=== PATIENT | male | born 1955 | race Native Hawaiian/Other Pacific Islander ===

== ENCOUNTER → 2017-12-18 | Outpatient (CLI) | payer OTHER ==
--- NOTE | 2017-12-18 12:50 | MR ---
EXAMINATION TYPE: MR brain/lspine wo con DATE OF EXAM: 12/18/2017 COMPARISON: NONE HISTORY: Vertigo / Disc degeneration, lumbar spine per order. Degeneration of lumbar spine with arth ritis causing pain into left buttocks thigh and calf per patient. Dizziness per patient. TECHNIQUE: Multiplanar, multisequence imaging of the lumbar spine, brain, and brainstem are all perfo rmed performed without IV contrast. FINDINGS: BRAIN: Diffusion weighted images demonstrate no evidence of a recent infarct or other diffusion abnormality. There is no worrisome extra-axial fluid collection. There is mild ventricular and sulcal prominence c onsistent with mild diffuse age-related cerebral atrophy. There are multifocal areas of T2 hyperinten sity seen throughout the white matter bilaterally. Approximately 10 scattered lesions are seen. Lesio ns are likely on basis of product of chronic small vessel ischemic change. Midline structures demonstrate normal morphology. The craniocervical junction appears within normal limits. Normal vascular flow voids are present. There is 2 cm mucous retention cyst or polyp in the i nferior posterior left maxillary sinus. There is moderate to severe mucosal thickening in ethmoid sin uses bilaterally. There is mild mucosal thickening in bilateral frontal and sphenoid sinuses. Nasal s eptum is deviated to right of midline. The globes are intact bilaterally. Some patchy increased fluid signal right mastoid air cells is present. IMPRESSION: 1. There is mild diffuse age-related cerebral atrophy and chronic small vessel ischemic change identi fied. 2. Chronic paranasal sinus disease as detailed above. 3. Possible mild right-sided mastoiditis, clinical correlation to assess for point tenderness at this level advised. Differential includes retained secretions. L-SPINE: TECHNIQUE: Multiplanar, multisequence imaging of the lumbar spine is performed without IV contrast. FINDINGS: Sagittal images of the lumbar spine show vertebral body heights and alignment to appear sat isfactory. Multilevel disc desiccation is seen. There is multilevel mild to moderate disc space narro wing most prominent posterior L3-L4 through L5-S1 levels posterior spur disc complexes are seen at th ronny levels on sagittal images. The conus medullaris is normal in position and signal ending at L1-L2 disc space. There is prominence of epidural fat beginning at superior L3 level noted. The bone marro w signal intensity is within normal limits. There is mild to moderate multilevel anterior spurring. Axial images show the T12-L1 and L1-L2 levels to appear within normal limits. Axial images at L2-L3 level show broad-based posterior disc protrusion effacing anterior thecal sac a nd causing mild bilateral anterior inferior neural foraminal narrowing. Prominence of epidural fat be gins at this level posteriorly and laterally. Axial images at L3-L4 level show mild to moderate facet degenerative changes bilaterally. There is br oad-based posterior disc protrusion seen. Prominence of epidural fat is noted. There is mild to moder ate bilateral right greater than left neural foraminal narrowing at this level identified. Axial images at L4-L5 level show mild to moderate facet degenerative changes bilaterally. There is br oad-based posterior disc protrusion seen. There is moderate bilateral neural foraminal narrowing at t his level identified. Prominent epidural fat is once again noted. Axial images at L5-S1 level show moderate facet degenerative changes bilaterally. Prominent epidural fat is noted. There is posterior spur disc complex identified. There is moderate right and severe lef t-sided neural foraminal narrowing with suspected encroachment on left L5 nerve seen best sagittal im age 2 and axial image 4. Paraspinal muscle bulk is preserved. No suspicious retroperitoneal findings are seen. IMPRESSION: There is epidural lipomatosis mid to lower lumbar spine causing diffuse narrowing of spin al canal. Multilevel degenerative changes are seen most prominent L3-L4 through L5-S1 levels as detai led above. There is encroachment on left L5 nerve due to disc herniation L5-S1 level felt present.
== END | disposition home or self-care (01) ==
LOC: RADMRIMAIN 10:57
PROVIDERS: ATTEND Psychiatry & Neurology Neurology
DX: G31.9 Degenerative disease of nervous system, unspecified (principal); I67.82 Cerebral ischemia; M51.27 Other intervertebral disc displacement, lumbosacral region; E88.2 Lipomatosis, not elsewhere classified; M48.061 Spinal stenosis, lumbar region without neurogenic claudication; M47.817 Spondylosis without myelopathy or radiculopathy, lumbosacral region; Z95.1 Presence of aortocoronary bypass graft
CPT/HCPCS: 70551; 72148

== ENCOUNTER 2020-04-21 12:20 | Observation (INO) | payer OTHER ==
[2020-04-21] MEDS ORDERED: SODIUM CHLORIDE 0.9% 1,000 ML IV ONE (13:10)
[2020-04-21 13:50] LABS: Glucose,Whole Blood 108 mg/dL (75-99)
[2020-04-21] MEDS ORDERED: LIDOCAINE 1% INJ 10MG/ML (20 ML MDV) ONE (17:30)
[2020-04-21] MEDS ORDERED: MIDAZOLAM 2 MG/2 ML VIAL IV ONE (17:45)
[2020-04-21] MEDS ORDERED: BIVALIRUDIN 250 MG in SODIUM CHLORIDE 0.9% 35 ML IV ONE (17:46)
[2020-04-21] MEDS ORDERED: BIVALIRUDIN BOLUS 250 MG/50 ML IV ONE (17:46)
[2020-04-21] MEDS ORDERED: PRASUGREL 10 MG TAB ONE (17:49)
[2020-04-21] MEDS ORDERED: PRASUGREL 10 MG TAB PO ONE (17:51)
[2020-04-21] MEDS: NITROGLYCERIN 1000MCG/10ML SYRINGE INTRACORON ONE ×2 (17:52→17:56)
[2020-04-21] MEDS ORDERED: niCARdipine 25 MG/10 ML VIAL ONE (18:01)
[2020-04-21] MEDS ORDERED: niCARdipine Syringe (1,000 mcg/10 mL) INTRACORON ONE (18:02)
[2020-04-21] MEDS ORDERED: IOPAMIDOL-370 125ML BTL INJ ONE (18:04)
[2020-04-21] MEDS ORDERED: HYDROcodone/APAP 5-325MG 1 EACH TAB PO PRN (18:09)
[2020-04-21] MEDS ORDERED: MAG HYDROX/AL HYDROX/SIMETH 30 ML CUP PO PRN (18:10)
[2020-04-21] MEDS ORDERED: ZOLPIDEM 5 MG TAB PO PRN (18:10)
[2020-04-21] MEDS ORDERED: NITROGLYCERIN SL TABS 0.4 MG TAB SUBLINGUAL PRN (18:10)
[2020-04-21] MEDS ORDERED: ATROPINE SULFATE 0.1 MG/ML 10ML SYRINGE IV PRN (18:10)
[2020-04-21] MEDS ORDERED: RX INFO: IV CONTRAST WAS GIVEN 1 EACH MISC MISCELLANE PRN (18:10)
[2020-04-21] MEDS ORDERED: SODIUM CHLORIDE 0.9% 1,000 ML IV SCH (18:15)
--- NOTE | 2020-04-21 18:50 | PTCA ---
PERCUTANEOUSTRANS CORORONARY ANGIOGRAPHY DATE OF SERVICE: 04/21/2020 PERFORMING PHYSICIAN: Tejinder Melendez M.D. PROCEDURE PERFORMED: Successful stenting of the proximal left anterior descending artery using a 3.25 x 15 mm Xience drug-eluting stent which was post-dilated using a 3.5 mm NC balloon with an excellent angiographic result and reduction of stenosis from 80% to 0%. INDICATION: This is a pleasant 65-year-old gentleman with known coronary artery disease and prior coronary artery bypass grafting who was admitted to [facility] with chest discomfort and was found to have an abnormal myocardial perfusion imaging stress test. A heart catheterization was performed and revealed critical disease involving the LAD. He was brought today for PCI of the LAD. APPROACH: Right common femoral artery. COMPLICATIONS: None. LEVEL OF SEDATION: Moderate, with sedation length of 23 minutes. PROCEDURE DESCRIPTION: Please refer to diagnostic heart catheterization that was performed by myself earlier today at [facility]. Anticoagulation was initiated using Angiomax. Subsequently I did engage the left main using a JL4 guide. I did wire the LAD using a run-through wire. I did PTCA ballooning using a 3.0 x 12 mm balloon before I deployed a a 3.5 x 15 mm Xience drug-eluting stent where the stent was positioned under fluoroscopic guidance and deployed under 14 atmospheres for 20 seconds. I post-dilated the stent using a 3.5 mm NC balloon. The following angiogram showed excellent angiographic results, and the procedure was completed without any complication. POST-PROCEDURE MANAGEMENT: 1. Dual anti-platelet therapy. 2. Risk factor modifications. 3. Follow up with the patient. MMODL / IJN: [id number] /
[2020-04-21] MEDS: BUDESONIDE 0.5 MG/2 ML NEBU INHALATION SCH (19:00)
[2020-04-21] MEDS ORDERED: IPRATROPIUM-ALBUTEROL 3 ML NEB INHALATION PRN (20:06)
[2020-04-21] MEDS ORDERED: ATORVASTATIN 40 MG TAB PO SCH (21:00)
[2020-04-21 21:45] VITALS: RESP 18
[2020-04-21] MEDS: METOPROLOL TARTRATE 50 MG TAB PO SCH (21:51)
[2020-04-22 06:11] LABS: Glucose,Whole Blood 116 mg/dL (75-99)
[2020-04-22 06:54] LABS: Basophils # (A) 0.1 k/uL (0-0.2); Basophils % (A) 0 %; Eosinophils # (A) 0.4 k/uL (0-0.7); Eosinophils % (A) 3 %; HCT 47.6 % (39.0-53.0); HGB 15.3 gm/dL (13.0-17.5); Lymphocytes # (A) 2.5 k/uL (1.0-4.8); Lymphocytes % (A) 19 %; MCH 30.9 pg (25.0-35.0); MCHC 32.1 g/dL (31.0-37.0); MCV 96.2 fL (80.0-100.0); Mean Platelet Volume 7.3; Monocytes # (A) 0.6 k/uL (0-1.0); Monocytes % (A) 4 %; Neutrophils # (A) 9.6 k/uL (1.3-7.7); Neutrophils % (A) 73 %; Platelet Count 217 k/uL (150-450); RBC 4.94 m/uL (4.30-5.90); RDW 12.9 % (11.5-15.5); WBC 13.3 k/uL (3.8-10.6)
[2020-04-22 07:13] LABS: African American GFR (CKD) >90 (>60 ml/min/1.73 sqM); Anion Gap 6 mmol/L; Blood Urea Nitrogen 16 mg/dL (9-20); Calcium 8.8 mg/dL (8.4-10.2); Carbon Dioxide 28 mmol/L (22-30); Chloride 102 mmol/L (98-107); Glucose 107 mg/dL (74-99); Non-African American GFR(CKD) >90 (>60 ml/min/1.73 sqM); Potassium 4.5 mmol/L (3.5-5.1); Sodium 136 mmol/L (137-145)
[2020-04-22] MEDS ORDERED: INSULIN ASPART (NovoLOG) 100 UNIT/ML VIAL SQ SCH (07:30)
[2020-04-22] MEDS ORDERED: IPRATROPIUM-ALBUTEROL 3 ML NEB INHALATION SCH ×2 (08:00)
[2020-04-22] MEDS: BUDESONIDE 0.5 MG/2 ML NEBU INHALATION SCH (08:40)
[2020-04-22 08:48] VITALS: BP 134/79; TEMP 97.4
[2020-04-22 08:54] VITALS: PULSE 84
[2020-04-22] MEDS ORDERED: ASPIRIN 325 MG TAB PO SCH (09:00)
[2020-04-22] MEDS ORDERED: PANTOPRAZOLE 40 MG TABLET PO SCH (09:00)
[2020-04-22] MEDS: METOPROLOL TARTRATE 50 MG TAB PO SCH (09:08)
--- NOTE | 2020-04-22 09:46 | DS ---
DISCHARGE SUMMARY BRIEF HISTORY: This is a 65-year-old gentleman with coronary artery disease and prior coronary artery bypass grafting, who has not seen a physician in 3 years, [facility] and underwent myocardial perfusion imaging stress test and that revealed ischemia. He underwent subsequently a heart catheterization which revealed critical disease involving the LAD. He underwent yesterday successful stenting of the LAD using drug-eluting stent with an excellent angiographic results and without any complication. He was seen this morning. The right groin is soft and nontender and without any bruises. The patient is going to discharged home and I will follow up with him in the office next week. MMODL / IJN: [id number] /
[2020-04-22 10:30] VITALS: BMI 39.6
--- NOTE | 2020-04-22 18:04 | HP ---
HISTORY AND PHYSICAL CHIEF COMPLAINT: Chest pain. HISTORY OF PRESENT ILLNESS: This gentleman was transferred from [facility]. He was admitted there with chest pain and underwent a Lexiscan which was abnormal and subsequent cardiac cath which demonstrated a narrowed vessel, and he was moved here for stenting. REVIEW OF SYSTEMS: He is not having any pain at this time. He has had no headaches, nausea, vomiting, abdominal pain, fever, chills, etc. Past medical history, family history, and personal and social histories can all be found in the records from [facility]'s notes. PHYSICAL EXAMINATION: Blood pressure 129/74 with a pulse of 88, respirations of 29. He is afebrile. In general he appeared to be slightly overweight and in no acute distress. Skin color was normal. Skin was warm and dry. Lymph nodes were not enlarged. Head, ears, eyes, nose, mouth and throat were normal. Neck veins were not distended. Thyroid was not enlarged. Chest was clear. Cardiac exam was normal. Abdomen was soft and slightly protuberant. Extremities were normal. Neurologically he is intact. He is admitted to the hospital with diagnoses: 1. Coronary artery disease. 2. Status post previous coronary artery bypass grafting. 3. Type 2 [id number] diabetes mellitus. 4. Chronic obstructive pulmonary disease. PLAN: Cardiac cath with coronary artery stent. MMODL / IJN: [id number] /
[2020-04-22] MEDS ORDERED: PRASUGREL 10 MG TAB PO SCH (18:10)
--- NOTE | 2020-04-22 18:19 | PN ---
PROGRESS NOTE DATE OF SERVICE: 04/22/2020 CHIEF COMPLAINT: Coronary artery disease. HISTORY OF PRESENT ILLNESS: This gentleman is doing well. He received his stent and yesterday and expects to go home today. PHYSICAL EXAMINATION: He is afebrile. Vital signs are normal. His chest is clear. Cardiac exam is normal. Abdomen is soft, nontender. IMPRESSION: 1. Coronary artery disease. 2. Hypertension. 3. Chronic obstructive pulmonary disease. 4. Diabetes. PLAN: Probably home today. MMODL / IJN: [id number] /
== END 2020-04-22 10:37 | disposition home or self-care (01) ==
LOC: 3SCARD 13:05 → INTOOBSV 13:05 → UNDODISIN 04-22 10:37
PROVIDERS: ADMIT Internal Medicine Interventional Cardiology; ATTEND Internal Medicine Interventional Cardiology
DX: I25.10 Atherosclerotic heart disease of native coronary artery without angina pectoris (principal); E11.9 Type 2 diabetes mellitus without complications; J44.9 Chronic obstructive pulmonary disease, unspecified; I10 Essential (primary) hypertension; Z95.1 Presence of aortocoronary bypass graft
CPT/HCPCS: 93005; 94640 ×2; 80048; 85025; G0378 ×2; G0379; C9600; C1887; C1725 ×2; C1894; C1769; C1874; J2250; J0583; Q9967

== ENCOUNTER → 2020-07-07 | Outpatient (CLI) | payer OTHER ==
[2020-07-07 13:50] LABS: HCT 48.7 % (39.0-53.0); MCH 31.9 pg (25.0-35.0); MCHC 32.9 g/dL (31.0-37.0); Mean Platelet Volume 7.5; Platelet Count 249 k/uL (150-450); RBC 5.02 m/uL (4.30-5.90); RDW 12.8 % (11.5-15.5); WBC 12.5 k/uL (3.8-10.6)
[2020-07-07 13:53] LABS: Magnesium 2.1 mg/dL (1.6-2.3); Potassium 5.3 mmol/L (3.5-5.1)
== END | disposition home or self-care (01) ==
LOC: LABPAT 11:58
PROVIDERS: ATTEND Internal Medicine Interventional Cardiology
DX: Z01.818 Encounter for other preprocedural examination (principal); I25.10 Atherosclerotic heart disease of native coronary artery without angina pectoris
CPT/HCPCS: 36415; 80051; 82565; 83735; 85027

== ENCOUNTER 2020-07-13 06:34 | Day surgery (SDC) | payer OTHER ==
[2020-07-08 11:36] VITALS: BMI 40.2
[2020-07-13] MEDS ORDERED: ASPIRIN 325 MG TAB PO STA (06:47)
[2020-07-13] MEDS ORDERED: SODIUM CHLORIDE 0.9% 1,000 ML in EMPTY BAG 1 BAG IV ONE (06:47)
[2020-07-13] MEDS ORDERED: ALPRAZolam 0.25 MG TAB PO PRN (06:47)
[2020-07-13] MEDS ORDERED: ALPRAZolam 0.5 MG TAB PO PRN (06:47)
[2020-07-13] MEDS ORDERED: NITROGLYCERIN SL TABS 0.4 MG TAB SUBLINGUAL PRN (06:47)
[2020-07-13 07:09] LABS: Glucose,Whole Blood 123 mg/dL (75-99)
[2020-07-13 07:16] VITALS: RESP 18; TEMP 99
[2020-07-13] MEDS ORDERED: LIDOCAINE 1% INJ 10MG/ML (20 ML MDV) ONE (07:28)
[2020-07-13 07:44] LABS: Basophils # (A) 0.1 k/uL (0-0.2); Basophils % (A) 1 %; Eosinophils # (A) 0.5 k/uL (0-0.7); Eosinophils % (A) 4 %; HCT 44.8 % (39.0-53.0); HGB 14.7 gm/dL (13.0-17.5); Lymphocytes # (A) 2.4 k/uL (1.0-4.8); Lymphocytes % (A) 16 %; MCHC 32.9 g/dL (31.0-37.0); MCV 94.3 fL (80.0-100.0); Mean Platelet Volume 7.2; Monocytes # (A) 0.7 k/uL (0-1.0); Monocytes % (A) 5 %; Neutrophils # (A) 10.7 k/uL (1.3-7.7); Neutrophils % (A) 74 %; Platelet Count 230 k/uL (150-450); RBC 4.75 m/uL (4.30-5.90); RDW 12.6 % (11.5-15.5); WBC 14.5 k/uL (3.8-10.6)
[2020-07-13] MEDS ORDERED: MIDAZOLAM 2 MG/2 ML VIAL IV ONE (08:01)
[2020-07-13] MEDS ORDERED: LIDOCAINE 1% INJ 10MG/ML (20 ML MDV) SQ ONE (08:01)
[2020-07-13 08:04] LABS: African American GFR (CKD) >90 (>60 ml/min/1.73 sqM); Anion Gap 6 mmol/L; Blood Urea Nitrogen 17 mg/dL (9-20); Calcium 8.8 mg/dL (8.4-10.2); Carbon Dioxide 27 mmol/L (22-30); Chloride 102 mmol/L (98-107); Glucose 134 mg/dL (74-99); Non-African American GFR(CKD) 81 (>60 ml/min/1.73 sqM); Potassium 4.2 mmol/L (3.5-5.1); Sodium 135 mmol/L (137-145)
[2020-07-13] MEDS ORDERED: IOPAMIDOL-370 125ML BTL INJ ONE (08:21)
[2020-07-13] MEDS ORDERED: RX INFO: IV CONTRAST WAS GIVEN 1 EACH MISC MISCELLANE PRN (08:33)
[2020-07-13] MEDS ORDERED: SODIUM CHLORIDE 0.9% 1,000 ML IV SCH (08:45)
--- NOTE | 2020-07-13 09:41 | CC ---
CARDIAC CATHETERIZATION REPORT DATE OF SERVICE: 07/13/2020 PERFORMING PHYSICIAN: Tejinder Melendez MD. PROCEDURE PERFORMED: 1. Selective left and right coronary angiogram. 2. Left heart catheterization. INDICATION: This is a 65-year-old gentleman with coronary artery disease and prior coronary artery bypass grafting as well as stenting who continues to have chest discomfort and shortness of breath with exertion concerning for severe underlying coronary artery disease. Because of that, a heart catheterization was advised. APPROACH: Right common femoral artery. COMPLICATION: None. LEVEL OF SEDATION: Moderate with sedation length of 23 minutes. PROCEDURE DESCRIPTION: After obtaining an informed consent, the patient was brought to the cardiac roving tester laboratory. The right common femoral artery was cannulated using micropuncture technique. Then I placed a 6-Gabonese sheath. Selective left and right coronary angiogram performed using JL4 and JR4 catheters. SVG to left circumflex angiogram and SVG to diagonal angiogram performed using the JR4 catheter. The left heart catheterization was performed using 6-Gabonese pigtail catheter. The procedure was completed without any complication. SELECTIVE CORONARY ANGIOGRAM: 1. The right coronary artery is a medium caliber vessel. The RCA in the midportion is probably chronically occluded. This is just by the bifurcation of the acute marginal branch. 2. The left main is angiographically normal, it bifurcates into LCX and LAD. 3. The LCX is occluded in the proximal portion. 4. The LAD, the LAD is stented in the proximal portion, but the mid LAD has significant myocardial bridging. The LAD distally appeared to be angiographically normal. 5. HEMODYNAMICS: The LVEDP was 10 mmHg without significant gradient across the aortic valve. CORONARY BYPASSES ANGIOGRAM: 1. The SVG to OM is patent. 2. The SVG to diagonal is occluded. CONCLUSION: 1. Patent stent in the proximal LAD. Significant myocardial bridging involving the mid LAD. 2. Occluded left circumflex in the proximal portion. The SVG to the circumflex is patent. 3. Subtotally occluded mid right coronary artery. The SVG to RCA is occluded. 4. Occluded SVG to diagonal as well. POSTPROCEDURE MANAGEMENT: 1. Consider medical treatment at this point. 2. If the patient continues to be symptomatic, I would consider doing PCI of the mid RCA by the acute marginal bifurcation. MMODL / IJN: [id number] /
[2020-07-13 16:20] VITALS: BP 117/58
[2020-07-13 16:21] VITALS: PULSE 72
== END 2020-07-13 16:22 | disposition home or self-care (01) ==
LOC: CATHCVL 06:34
PROVIDERS: ATTEND Internal Medicine Interventional Cardiology
DX: I25.10 Atherosclerotic heart disease of native coronary artery without angina pectoris (principal); I25.810 Atherosclerosis of coronary artery bypass graft(s) without angina pectoris; I25.82 Chronic total occlusion of coronary artery; I10 Essential (primary) hypertension; E11.9 Type 2 diabetes mellitus without complications; E66.3 Overweight; E78.5 Hyperlipidemia, unspecified; Z79.84 Long term (current) use of oral hypoglycemic drugs; Z79.82 Long term (current) use of aspirin; Z79.899 Other long term (current) drug therapy; Z88.0 Allergy status to penicillin; Z68.41 Body mass index [BMI] 40.0-44.9, adult; Z95.1 Presence of aortocoronary bypass graft; Z95.5 Presence of coronary angioplasty implant and graft
CPT/HCPCS: 93459; 80048; 85025; C1894; C1769 ×2; J2250; J2001; Q9967

== ENCOUNTER 2020-08-03 06:30 | Day surgery (SDC) | payer OTHER ==
[~2020-08-03 06:30] MED LIST: ALPRAZolam 0.25 MG TAB PO PRN; ALPRAZolam 0.5 MG TAB PO PRN; ASPIRIN 325 MG TAB PO STA; NITROGLYCERIN SL TABS 0.4 MG TAB SUBLINGUAL PRN; SODIUM CHLORIDE 0.9% 1,000 ML in EMPTY BAG 1 BAG IV ONE
[2020-08-03] MEDS ORDERED: SODIUM CHLORIDE 0.9% 1,000 ML IV ONE (07:00)
[2020-08-03 07:09] LABS: Glucose,Whole Blood 139 mg/dL (75-99)
[2020-08-03 07:27] LABS: Basophils # (A) 0.1 k/uL (0-0.2); Basophils % (A) 1 %; Eosinophils # (A) 0.5 k/uL (0-0.7); Eosinophils % (A) 4 %; HCT 45.4 % (39.0-53.0); HGB 15.4 gm/dL (13.0-17.5); Lymphocytes # (A) 2.5 k/uL (1.0-4.8); Lymphocytes % (A) 21 %; MCH 31.6 pg (25.0-35.0); MCHC 33.8 g/dL (31.0-37.0); MCV 93.6 fL (80.0-100.0); Mean Platelet Volume 7.2; Monocytes # (A) 0.6 k/uL (0-1.0); Monocytes % (A) 5 %; Neutrophils # (A) 7.9 k/uL (1.3-7.7); Neutrophils % (A) 67 %; Platelet Count 237 k/uL (150-450); RBC 4.86 m/uL (4.30-5.90); RDW 12.7 % (11.5-15.5); WBC 11.7 k/uL (3.8-10.6)
[2020-08-03] MEDS ORDERED: MIDAZOLAM 2 MG/2 ML VIAL IV ONE ×2 (07:44→08:21)
[2020-08-03] MEDS ORDERED: LIDOCAINE 1% INJ 10MG/ML (20 ML MDV) SQ ONE (07:48)
[2020-08-03] MEDS ORDERED: HEPARIN SODIUM 1,000 UN/ML (10ML VL) IV ONE (07:54)
[2020-08-03] MEDS: NITROGLYCERIN 1000MCG/10ML SYRINGE INTRACORON ONE ×2 (08:08→08:35)
[2020-08-03] MEDS: niCARdipine Syringe (1,000 mcg/10 mL) INTRACORON ONE ×2 (08:09→08:35)
[2020-08-03 08:14] LABS: African American GFR (CKD) >90 (>60 ml/min/1.73 sqM); Anion Gap 5 mmol/L; Blood Urea Nitrogen 16 mg/dL (9-20); Calcium 8.3 mg/dL (8.4-10.2); Carbon Dioxide 29 mmol/L (22-30); Chloride 103 mmol/L (98-107); Cholesterol 138 mg/dL (<200); Glucose 134 mg/dL (74-99); HDL Cholesterol 34 mg/dL (40-60); LDL Cholesterol,Calculated 78 mg/dL (0-99); Non-African American GFR(CKD) >90 (>60 ml/min/1.73 sqM); Potassium 3.9 mmol/L (3.5-5.1); Sodium 137 mmol/L (137-145); Triglycerides 131 mg/dL (<150)
[2020-08-03] MEDS ORDERED: fentaNYL (PF) 50 MCG/ML 2 ML AMP IV ONE (08:21)
[2020-08-03] MEDS ORDERED: NITROGLYCERIN SL TABS 0.4 MG TAB SUBLINGUAL PRN ×2 (08:49→08:50)
[2020-08-03] MEDS ORDERED: hydrOXYzine HCL 25 MG TAB PO PRN (08:49)
[2020-08-03] MEDS ORDERED: MECLIZINE 25 MG TAB PO PRN (08:49)
[2020-08-03] MEDS ORDERED: ALBUTEROL NEBULIZED 2.5 MG/3 ML INHALATION PRN (08:49)
[2020-08-03] MEDS ORDERED: TRIAMCINOLONE 0.1% CREAM 80 GM TUBE TOPICAL PRN (08:49)
[2020-08-03] MEDS ORDERED: IOPAMIDOL-370 125ML BTL INJ ONE (08:49)
[2020-08-03] MEDS ORDERED: ATROPINE SULFATE 0.1 MG/ML 10ML SYRINGE IV PRN (08:50)
[2020-08-03] MEDS ORDERED: RX INFO: IV CONTRAST WAS GIVEN 1 EACH MISC MISCELLANE PRN (08:50)
[2020-08-03] MEDS ORDERED: ZOLPIDEM 5 MG TAB PO PRN (08:50)
[2020-08-03] MEDS ORDERED: MAG HYDROX/AL HYDROX/SIMETH 30 ML CUP PO PRN (08:50)
[2020-08-03] MEDS ORDERED: PRASUGREL 10 MG TAB PO ONE (08:51)
[2020-08-03] MEDS ORDERED: SODIUM CHLORIDE 0.9% 1,000 ML IV SCH (09:00)
[2020-08-03 09:20] LABS: Glucose,Whole Blood 130 mg/dL (75-99)
--- NOTE | 2020-08-03 09:32 | PTCA ---
PERCUTANEOUSTRANS CORORONARY ANGIOGRAPHY DATE OF SERVICE: August 03, 2020 PERFORMING PHYSICIAN: Tejinder Melendez MD. PROCEDURE PERFORMED: 1. Successful stenting of the mid right coronary artery using 2.0 x 2 mm Phillip drug- eluting stent with an excellent angiographic result. 2. Placement of transvenous temporary pacemaker in the right ventricle. INDICATION: This is a 65-year-old gentleman with coronary artery disease and prior coronary artery bypass grafting as well as stenting who is known to have severe disease/critical disease involving the mid RCA. He continues to have chest discomfort after he was treated medically. Because of that, he was brought today to undergo an intervention. APPROACH: Right common femoral artery. COMPLICATION: None. LEVEL OF SEDATION: Moderate with sedation length of 53 minutes. PROCEDURE DESCRIPTION: After obtaining an informed consent, the patient was brought to cardiac labor conciliator. The right common femoral vein and right common femoral arteries were cannulated using micropuncture technique and a micropuncture wire passed easily. Then I placed two 6- Nepalese at the vein as well as the arteries. At that point, the initial plan was to perform atherectomy of the right coronary artery, so we advanced transvenous temporary pacemaker under fluoroscopic guidance to the right ventricle where a set up of the pacemaker was placed at 60 of the heart rate and 5 of amp as a backup. The RCA was engaged using JR4 guide. At that point, anticoagulation was initiated using heparin. Selective right coronary angiogram was performed and that revealed a vessel of only 2.0 to 2.25 mm in diameter and because of that, we were hesitant to do atherectomy on the patient. At that point, I did wire the RCA using a whisper wire. I did exchange my wire into [employer] using catheter. After that I did balloon angioplasty using 1 mm balloon and subsequently 2.0 mm balloon. After that, I deployed 2.0 x 12 mm Phillip drug-eluting stent where the stent was positioned under fluoroscopy guidance and deployed under 18 atmospheres for 20 seconds and the following angiogram showed good angiographic results and the procedure was completed without any complication. Please note that the JR4 catheter crossed the aortic valve at the beginning of the procedure and I did LVEDP. The procedure was completed without any complication. POSTPROCEDURE MANAGEMENT: 1. Dual anti-platelet therapy. 2. Risk factor modifications. 3. Follow up with the patient. MMODL / IJN: [id number] /
[2020-08-03 15:36] VITALS: BMI 40.6
[2020-08-03] MEDS: FUROSEMIDE 40 MG TAB PO SCH (16:29)
[2020-08-03] MEDS: LORATADINE 10 MG TAB PO SCH (16:30)
[2020-08-03] MEDS: GLIMEPIRIDE 2 MG TAB PO SCH (16:30)
[2020-08-03] MEDS: HYDROcodone/APAP 5-325MG 1 EACH TAB PO PRN ×2 (16:32→20:24)
[2020-08-03 19:37] LABS: Glucose,Whole Blood 198 mg/dL (75-99)
[2020-08-03] MEDS ORDERED: ISOSORBIDE MONONITRATE ER 30 MG TAB.ER.24H PO SCH (21:00)
[2020-08-03] MEDS ORDERED: lisinopriL 20 MG TAB PO SCH (21:00)
[2020-08-03] MEDS: SYMBICORT 160-4.5 MCG INHALER INHALATION SCH (21:47)
[2020-08-04 06:12] LABS: Glucose,Whole Blood 107 mg/dL (75-99)
[2020-08-04 08:22] LABS: Basophils % (A) 0 %; Eosinophils # (A) 0.3 k/uL (0-0.7); Eosinophils % (A) 3 %; HGB 13.6 gm/dL (13.0-17.5); Lymphocytes # (A) 1.8 k/uL (1.0-4.8); Lymphocytes % (A) 21 %; MCH 31.7 pg (25.0-35.0); MCHC 33.2 g/dL (31.0-37.0); MCV 95.4 fL (80.0-100.0); Mean Platelet Volume 7.1; Monocytes # (A) 0.5 k/uL (0-1.0); Monocytes % (A) 6 %; Neutrophils # (A) 6.1 k/uL (1.3-7.7); Neutrophils % (A) 69 %; Platelet Count 199 k/uL (150-450); RDW 12.9 % (11.5-15.5); WBC 8.8 k/uL (3.8-10.6)
[2020-08-04 08:38] LABS: Calcium 8.3 mg/dL (8.4-10.2)
[2020-08-04] MEDS ORDERED: ERGOCALCIFEROL 50,000 UNIT CAP PO SCH (09:00)
[2020-08-04] MEDS ORDERED: ATORVASTATIN 40 MG TAB PO SCH (09:00)
[2020-08-04] MEDS ORDERED: CHOLECALCIFEROL 1,000 UNIT TAB PO SCH (09:00)
[2020-08-04] MEDS ORDERED: ASPIRIN 81 MG PO SCH (09:00)
[2020-08-04] MEDS ORDERED: METOPROLOL SUCCINATE (ER) 100 MG TAB.ER.24H PO SCH (09:00)
[2020-08-04] MEDS ORDERED: FAMOTIDINE 20 MG TAB PO SCH (09:00)
[2020-08-04] MEDS ORDERED: PANTOPRAZOLE 40 MG TABLET PO SCH (09:00)
[2020-08-04] MEDS: HYDROcodone/APAP 5-325MG 1 EACH TAB PO PRN (09:06)
[2020-08-04] MEDS: GLIMEPIRIDE 2 MG TAB PO SCH (09:07)
[2020-08-04] MEDS: FUROSEMIDE 40 MG TAB PO SCH (09:08)
[2020-08-04] MEDS: LORATADINE 10 MG TAB PO SCH (09:08)
--- NOTE | 2020-08-04 11:19 | DS ---
DISCHARGE SUMMARY ADMISSION DATE: 08/03/2020. DISCHARGE DATE: 08/04/2020 BRIEF HISTORY: This is a 65-year-old gentleman who underwent yesterday successful stenting of the right coronary artery. He was seen this morning. The right groin is soft and nontender and without any bruises. He is going to be discharged home on dual anti-platelet therapy along with a statin and holding the metformin for 48 hours. The patient is going to be seen in the office in a week. MMODL / VIDYAN: [id number] /
[2020-08-04 11:22] VITALS: RESP 16; TEMP 98
[2020-08-04 11:53] LABS: Glucose,Whole Blood 207 mg/dL (75-99)
[2020-08-04 12:05] VITALS: BP 120/69; PULSE 79
[2020-08-04] MEDS: SYMBICORT 160-4.5 MCG INHALER INHALATION SCH (13:01)
[2020-08-04] MEDS ORDERED: PRASUGREL 10 MG TAB PO SCH (21:00)
--- NOTE | 2020-08-05 19:55 | PN ---
PROGRESS NOTE DATE OF SERVICE: 08/04/2020 CHIEF COMPLAINT: Coronary artery disease. HISTORY OF PRESENT ILLNESS: This gentleman is doing well and stent was placed. He is having no chest pain or shortness of breath, and he is expected to go home today. PHYSICAL EXAMINATION: Vital signs are normal. Head, ears, eyes, nose, mouth and throat are normal the. Chest is clear. Cardiac exam reveals sinus rhythm. Abdomen is soft and protuberant. Extremities are normal. IMPRESSION: 1. Coronary artery disease, status post stenting. 2. Hypertension. 3. Atherosclerotic cardiovascular disease. 4. Type 2 [id number] diabetes mellitus. PLAN: Probably home today. MMODL / IJN: [id number] /
--- NOTE | 2020-08-05 20:25 | CONS ---
CONSULTATION CHIEF COMPLAINT: ASCVD and chest pain with coronary artery disease. HISTORY OF PRESENT ILLNESS: This gentleman is admitted for an elective cardiac cath and presumed stenting. He has a history of continued nicotine abuse, asthma, alcoholism and coronary artery disease. REVIEW OF SYSTEMS: He has had no recent neurologic problems, cough, hemoptysis, fever, chills, abdominal pain, nausea, vomiting, diarrhea, melena, jaundice, hepatitis, renal failure, frequency, urgency, dysuria, incontinence, etc. Past medical history, family history, and personal and social histories are otherwise noncontributory. MEDICATIONS: Medications that he is taking include isosorbide mononitrate, gabapentin, benazepril, aspirin, furosemide, Pepcid, vitamin D, prasugrel, glimepiride, metformin, metoprolol, simvastatin, tamsulosin and Vicodin. PHYSICAL EXAMINATION: Blood pressure is 136/79 with a pulse of 83, respirations of 14, and he is afebrile. In general he appeared to be slightly overweight. Skin color was normal. Skin was warm and dry. Lymph nodes were not enlarged. Head, ears, eyes, nose, mouth and throat were normal. Neck veins were not distended. Carotids were normal. Chest was clear to auscultation, but there were decreased breath sounds. Cardiac exam demonstrated normal sinus rhythm and no murmurs or extra sounds. Abdomen was protuberant, soft and nontender without visceromegaly or masses. Bowel sounds were present. Extremities were normal. Neurologically he is intact. He was admitted to the hospital with the diagnoses: 1. Coronary artery disease. 2. Atherosclerotic cardiovascular disease. 3. Hypertension. 4. Chronic obstructive pulmonary disease. 5. Diabetes. RECOMMENDATIONS: None at this time. Thank you. Respectfully, Bryan Logan II, M.D. KARSTEN / BARBIE: [id number] /
== END 2020-08-04 13:00 | disposition home or self-care (01) ==
LOC: CATHCVL 06:30 → 3SCARD 11:14 → CATHCVL 08-04 13:00
PROVIDERS: ATTEND Internal Medicine Interventional Cardiology
DX: I25.10 Atherosclerotic heart disease of native coronary artery without angina pectoris (principal); I10 Essential (primary) hypertension; J44.9 Chronic obstructive pulmonary disease, unspecified; E11.9 Type 2 diabetes mellitus without complications; E66.9 Obesity, unspecified; F17.210 Nicotine dependence, cigarettes, uncomplicated; Z95.5 Presence of coronary angioplasty implant and graft; Z79.82 Long term (current) use of aspirin; Z79.84 Long term (current) use of oral hypoglycemic drugs; Z79.899 Other long term (current) drug therapy; Z88.0 Allergy status to penicillin; Z68.41 Body mass index [BMI] 40.0-44.9, adult
CPT/HCPCS: 94640 ×2; 80061; 80048 ×2; 85025 ×2; C9600; C1769 ×4; C1887; C1725 ×2; C1894 ×2; C1874; J2250; J2001; J3010; J1644; Q9967

== ENCOUNTER → 2021-01-10 | Day surgery (SDC) | payer OTHER ==
[2021-01-07 15:28] VITALS: BMI 40.4
[~2021-01-10] MED LIST changes: -ALPRAZolam 0.5 MG TAB PO PRN; -ASPIRIN 325 MG TAB PO STA; +IOPAMIDOL-250 100ML BTL INTRAARTER ONE; +LIDOCAINE 1% INJ 10MG/ML (20 ML MDV) SQ ONE; +MIDAZOLAM 2 MG/2 ML VIAL IV ONE; -NITROGLYCERIN SL TABS 0.4 MG TAB SUBLINGUAL PRN; +SODIUM CHLORIDE 0.9% 1,000 ML IV SCH; +fentaNYL (PF) 50 MCG/ML 2 ML AMP IV ONE
[2021-01-10 09:36] VITALS: TEMP 98.6
[2021-01-10 09:37] LABS: Glucose,Whole Blood 160 mg/dL (75-99)
[2021-01-10 09:51] LABS: Basophils % (A) 0 %; Eosinophils # (A) 0.3 k/uL (0-0.7); Eosinophils % (A) 3 %; HCT 45.7 % (39.0-53.0); HGB 15.6 gm/dL (13.0-17.5); Lymphocytes # (A) 2.1 k/uL (1.0-4.8); Lymphocytes % (A) 18 %; MCH 31.6 pg (25.0-35.0); MCHC 34.2 g/dL (31.0-37.0); MCV 92.4 fL (80.0-100.0); Mean Platelet Volume 7.5; Monocytes # (A) 0.7 k/uL (0-1.0); Monocytes % (A) 6 %; Neutrophils # (A) 8.4 k/uL (1.3-7.7); Neutrophils % (A) 72 %; Platelet Count 262 k/uL (150-450); RBC 4.94 m/uL (4.30-5.90); RDW 13.2 % (11.5-15.5); WBC 11.6 k/uL (3.8-10.6)
[2021-01-10 09:58] LABS: African American GFR (CKD) >90 (>60 ml/min/1.73 sqM); Anion Gap 8 mmol/L; Blood Urea Nitrogen 13 mg/dL (9-20); Calcium 8.9 mg/dL (8.4-10.2); Carbon Dioxide 27 mmol/L (22-30); Chloride 103 mmol/L (98-107); Glucose 167 mg/dL (74-99); Non-African American GFR(CKD) >90 (>60 ml/min/1.73 sqM); Potassium 4.4 mmol/L (3.5-5.1); Sodium 138 mmol/L (137-145)
--- NOTE | 2021-01-10 11:55 | AN ---
ANGIOGRAPHY REPORT DATE OF SERVICE: January 10, 2021. PERFORMING PHYSICIAN: Tejinder Melendez MD. PROCEDURE PERFORMED: 1. An abdominal aortogram. 2. Bilateral lower extremities runoff. 3. An ultrasound guided access of the right common femoral artery. INDICATION: Left lower extremity intermittent claudication in this 65-year-old gentleman who underwent lower extremities arterial duplex study and that revealed severe left SFA disease. APPROACH: Right common femoral artery. COMPLICATION: None. LEVEL OF SEDATION: Moderate with sedation length of 9 minutes. PROCEDURE DESCRIPTION: After obtaining an informed consent, the patient was brought to the cardiac laborer poultry hatchery. The right common femoral artery was cannulated using micropuncture technique under ultrasound guidance, the micropuncture wire passed easily. Then after that I placed a 5-Georgian sheath at the right common femoral artery. After that I did an abdominal aortogram and bilateral lower extremities runoff using 5- Georgian pigtail catheter which was initially placed at the level of the renal arteries then it was pulled into above the bifurcation of the aorta to right and left common iliac arteries. The procedure after that was completed without any complication. SELECTIVE PERIPHERAL ANGIOGRAM: 1. The aorta appeared to have mild disease only. 2. Common Iliac Arteries: The right and left common iliac arteries appear to be angiographically normal. 3. Internal Iliac Arteries: Both internal iliac arteries are patent. 4. Common Femoral Arteries: Both appear to be angiographically normal. 5. Profunda: Both profunda are patent. 6. SFA: The right SFA appeared to have a lesion in the range of 60%. The left SFA has tight lesion in the range of 70%. 7. Popliteal: Both popliteals appeared to be angiographically normal. 8. Below The Knee: There are 3 vessels runoff below the knee bilaterally. CONCLUSION: 1. Mild aortoiliac disease. 2. Intermediate to severe disease involving the right SFA and severe disease involving the left SFA. POSTPROCEDURE MANAGEMENT: Proceed with BUFFER INFLATED PAD of the left SFA. MMODL / IJN: [id number] /
--- NOTE | 2021-01-10 12:28 | IR ---
EXAMINATION TYPE: IR angio abdominal w runoff DATE OF EXAM: 01/10/2021 CLINICAL HISTORY: Peripheral vascular disease. Left leg pain. TECHNIQUE: Fluoroscopy. COMPARISON: None. FINDINGS: Fluoroscopic guidance was provided during abdominal angiogram with lower extremity runoff procedure performed by Dr. Melendez. A total of 0.9 metastases of fluoroscopic time was utilized during the procedure and 131 spot images was acquired. Images show access via right groin with abdominal aor tic enhancement and bilateral lower extremity runoff. Please refer to procedure note for further deta ils. IMPRESSION: As Above.
[2021-01-10 13:32] VITALS: RESP 16
[2021-01-10 15:08] VITALS: BP 124/67; PULSE 63
== END ==
LOC: CATHCVL 09:00
PROVIDERS: ATTEND Internal Medicine Interventional Cardiology
DX: E11.51 Type 2 diabetes mellitus with diabetic peripheral angiopathy without gangrene (principal); I70.212 Atherosclerosis of native arteries of extremities with intermittent claudication, left leg; E78.5 Hyperlipidemia, unspecified; I70.0 Atherosclerosis of aorta; I10 Essential (primary) hypertension; F17.210 Nicotine dependence, cigarettes, uncomplicated; I25.10 Atherosclerotic heart disease of native coronary artery without angina pectoris; Z95.1 Presence of aortocoronary bypass graft; Z95.5 Presence of coronary angioplasty implant and graft; Z79.84 Long term (current) use of oral hypoglycemic drugs; Z79.899 Other long term (current) drug therapy; Z79.82 Long term (current) use of aspirin
CPT/HCPCS: 36200; 75625; 75716; 80048; 85025; 87635; C1769 ×4; C1894; J2250; J2001; J3010; Q9966

== ENCOUNTER 2021-04-12 07:16 | Day surgery (SDC) | payer OTHER ==
[2021-04-11 10:57] VITALS: BMI 40.2
[~2021-04-12 07:16] MED LIST changes: +ALPRAZolam 0.5 MG TAB PO PRN; +ASPIRIN 325 MG TAB PO PRN; +HEPARIN SODIUM,PORCINE 10,000 UNIT in SODIUM CHLORIDE 0.9% 1,000 ML IRRIGATION PRN; +HEPARIN SODIUM,PORCINE 2,500 UNIT in SODIUM CHLORIDE 0.9% 250 ML IRRIGATION PRN; -IOPAMIDOL-250 100ML BTL INTRAARTER ONE; -LIDOCAINE 1% INJ 10MG/ML (20 ML MDV) SQ ONE; -MIDAZOLAM 2 MG/2 ML VIAL IV ONE; -SODIUM CHLORIDE 0.9% 1,000 ML IV SCH; +ZOLPIDEM 5 MG TAB PO PRN; -fentaNYL (PF) 50 MCG/ML 2 ML AMP IV ONE
[2021-04-12 07:51] LABS: Glucose,Whole Blood 175 mg/dL (75-99)
[2021-04-12] MEDS ORDERED: PRASUGREL 10 MG TAB PO STA (07:55)
[2021-04-12 08:06] LABS: Basophils % (A) 0 %; Eosinophils # (A) 0.3 k/uL (0-0.7); Eosinophils % (A) 3 %; HCT 44.2 % (39.0-53.0); HGB 14.7 gm/dL (13.0-17.5); Lymphocytes # (A) 1.8 k/uL (1.0-4.8); Lymphocytes % (A) 20 %; MCH 31.7 pg (25.0-35.0); MCHC 33.3 g/dL (31.0-37.0); MCV 95.2 fL (80.0-100.0); Mean Platelet Volume 7.7; Monocytes # (A) 0.5 k/uL (0-1.0); Monocytes % (A) 6 %; Neutrophils # (A) 6.2 k/uL (1.3-7.7); Neutrophils % (A) 69 %; Platelet Count 235 k/uL (150-450); RBC 4.65 m/uL (4.30-5.90); RDW 13.7 % (11.5-15.5)
[2021-04-12 08:49] LABS: African American GFR (CKD) >90 (>60 ml/min/1.73 sqM); Anion Gap 5 mmol/L; Blood Urea Nitrogen 16 mg/dL (9-20); Calcium 8.8 mg/dL (8.4-10.2); Carbon Dioxide 28 mmol/L (22-30); Chloride 103 mmol/L (98-107); Glucose 159 mg/dL (74-99); Non-African American GFR(CKD) >90 (>60 ml/min/1.73 sqM); Potassium 3.7 mmol/L (3.5-5.1); Sodium 136 mmol/L (137-145)
[2021-04-12] MEDS ORDERED: SODIUM CHLORIDE 0.9% 500 ML 500 ML with niCARdipine 6.25 MG, NITROGLYCERIN-D5W PMX 0.05... IV ONE ×4 (09:05)
[2021-04-12] MEDS: MIDAZOLAM 2 MG/2 ML VIAL IVP ONE ×2 (09:15→09:29)
[2021-04-12] MEDS ORDERED: LIDOCAINE 1% INJ 10MG/ML (20 ML MDV) SQ ONE (09:16)
[2021-04-12] MEDS ORDERED: HEPARIN SODIUM 1,000 UN/ML (10ML VL) IV ONE (09:22)
[2021-04-12] MEDS ORDERED: IOPAMIDOL-250 100ML BTL INTRAARTER ONE (09:38)
[2021-04-12] MEDS ORDERED: hydrOXYzine HCL 25 MG TAB PO PRN (09:44)
[2021-04-12] MEDS ORDERED: HYDROCORTISONE 1% CREAM 30 GM TUBE TOPICAL PRN (09:44)
[2021-04-12] MEDS ORDERED: MECLIZINE 25 MG TAB PO PRN (09:44)
[2021-04-12] MEDS ORDERED: NITROGLYCERIN SL TABS 0.4 MG TAB SUBLINGUAL PRN (09:44)
[2021-04-12] MEDS ORDERED: ALBUTEROL NEBULIZED 2.5 MG/3 ML INHALATION PRN (09:44)
[2021-04-12] MEDS ORDERED: SODIUM CHLORIDE 0.9% 1,000 ML in EMPTY BAG 1 BAG IV SCH (09:45)
--- NOTE | 2021-04-12 11:22 | AN ---
ANGIOGRAPHY REPORT DATE OF SERVICE: April 12, 2021. PERFORMING PHYSICIAN: Tejinder Melendez MD. PROCEDURE PERFORMED: 1. Atherectomy of the left SFA using the HawkOne device. 2. Balloon angioplasty of the left SFA using 5.0 x 40 mm Impact drug coated balloon with excellent angiographic results. 3. Intravascular ultrasound (IVUS) of the left SFA. 4. An angiogram of the left SFA and left posterior tibial artery. 5. Ultrasound-guided access of the left posterior tibial artery. INDICATION: Left lower extremity intermittent claudication in this gentleman who is a 66-year-old with hypertension and dyslipidemia and diabetes who underwent an anterior duplex study and that came in to be abnormal. APPROACH: Left posterior tibial artery. COMPLICATION: None. LEVEL OF SEDATION: Moderate with sedation length of 21 minutes. PROCEDURE DESCRIPTION: After obtaining informed consent, the patient was brought to the cardiac environmental laboratory technician. The left posterior tibial artery was cannulated using micropuncture technique under ultrasound guidance, the micropuncture wire passed easily then I placed a slender 5/6- Tajik sheath. Subsequently, I did wire the left SFA using an [address] wire[address] Intravascular ultrasound was performed and we located the lesion based on the ultrasound. After that, I did atherectomy using the HawkOne device with extraction of significant amount of plaque. After that, I did balloon angioplasty using 5.0 x 40 mm Impact drug coated balloon where the balloon was inflated under its nominal pressure for 3 minutes. The final angiogram showed excellent angiographic results. Then I did left posterior tibial artery angiogram to assess the patency below the knee. The procedure was completed without any complication. POSTPROCEDURE MANAGEMENT: 1. Dual anti-platelet therapy. 2. Aggressive cholesterol control. 3. Risk factor modifications. 4. Follow up with the patient. MMODL / IJN: [id number] /
--- NOTE | 2021-04-12 12:47 | IR ---
Fluoroscopy HISTORY: Pain in left foot 3.9 minutes fluoroscopy time supplied to the referring clinician. 145 intraoperative C-arm images do cument the procedure. See dictated report from cardiology.
[2021-04-12] MEDS: CYCLOBENZAPRINE 10 MG TAB PO PRN ×2 (14:52→22:02)
[2021-04-12] MEDS: HYDROcodone/APAP 5-325MG 1 EACH TAB PO PRN ×2 (14:52→22:02)
[2021-04-12 16:19] VITALS: RESP 16
[2021-04-12 17:48] LABS: Glucose,Whole Blood 168 mg/dL (75-99)
[2021-04-12] MEDS ORDERED: SYMBICORT 160-4.5 MCG INHALER INHALATION SCH (20:00)
[2021-04-12] MEDS ORDERED: METOPROLOL SUCCINATE (ER) 50 MG TAB.ER.24H PO SCH (21:00)
[2021-04-12] MEDS ORDERED: PRASUGREL 10 MG TAB PO SCH (21:00)
[2021-04-12] MEDS ORDERED: ISOSORBIDE MONONITRATE ER 30 MG TAB.ER.24H PO SCH (21:00)
[2021-04-12] MEDS: GLIMEPIRIDE 2 MG TAB PO SCH (22:01)
[2021-04-12 22:18] LABS: Glucose,Whole Blood 120 mg/dL (75-99)
[2021-04-13 06:52] LABS: African American GFR (CKD) >90 (>60 ml/min/1.73 sqM); Non-African American GFR(CKD) >90 (>60 ml/min/1.73 sqM)
[2021-04-13 07:07] LABS: Glucose,Whole Blood 182 mg/dL (75-99)
[2021-04-13 08:10] VITALS: BP 104/58; PULSE 80; TEMP 98.1
[2021-04-13] MEDS: GLIMEPIRIDE 2 MG TAB PO SCH (08:26)
[2021-04-13] MEDS: CYCLOBENZAPRINE 10 MG TAB PO PRN (08:31)
[2021-04-13] MEDS ORDERED: METOPROLOL SUCCINATE (ER) 100 MG TAB.ER.24H PO SCH (09:00)
[2021-04-13] MEDS ORDERED: ASPIRIN 81 MG PO SCH (09:00)
[2021-04-13] MEDS ORDERED: CHOLECALCIFEROL 25 MCG (1000 IU) TABLET PO SCH (09:00)
[2021-04-13] MEDS ORDERED: CLOPIDOGREL 75 MG TAB PO SCH (09:00)
[2021-04-13] MEDS ORDERED: LORATADINE 10 MG TAB PO SCH (09:00)
[2021-04-13] MEDS ORDERED: PANTOPRAZOLE 40 MG TABLET PO SCH (09:00)
[2021-04-13] MEDS ORDERED: FUROSEMIDE 40 MG TAB PO SCH (09:00)
[2021-04-13] MEDS ORDERED: ERGOCALCIFEROL 1,250 MCG (50,000 IU) CAPSULE PO SCH (09:00)
[2021-04-13] MEDS ORDERED: FAMOTIDINE 20 MG TAB PO SCH (09:00)
[2021-04-13] MEDS ORDERED: ATORVASTATIN 40 MG TAB PO SCH (09:00)
--- NOTE | 2021-04-13 09:47 | DS ---
DISCHARGE SUMMARY DATE OF ADMISSION: 04/12/2021 DATE OF DISCHARGE: 04/13/2021 BRIEF HISTORY: This is a pleasant 66-year-old gentleman who was diagnosed recently with severe peripheral arterial disease with severe disease involving the left SFA causing him to have left leg intermittent claudication. He underwent yesterday an atherectomy and balloon angioplasty of the left SFA with good angiographic results and without any complication from left pedal approach. The patient was seen this morning. He has a good pulse in the dorsalis pedis and posterior tibial artery. The patient is going to be discharged home on dual anti-platelet therapy and I will follow up with him in a week. MMGEORGEL / VIDYAN: [id number] /
--- NOTE | 2021-04-13 21:25 | CONS ---
CONSULTATION DATE OF SERVICE: 04/13/2021. CHIEF COMPLAINT: Atherosclerotic vascular disease and with peripheral vascular occlusive disease. HISTORY OF PRESENT ILLNESS: This is another admission for this 66-year-old gentleman who has a longstanding history of hypertension and heavy smoking. He has coronary artery disease and peripheral vascular disease and he is brought in for an elective procedure on the left lower extremity. He has had no recent chest pain, syncope, or any necrotic issues with the left foot. REVIEW OF SYSTEMS: He denies any fever, chills, shortness of breath, chest pain, abdominal pain, urinary complaints, etc. Past medical history, family history and personal history and social histories reveal that he is: ALLERGIC: TO PENICILLIN AND CANNOT TAKE TAMSULOSIN. MEDICATIONS: He is on hydroxyzine 25 mg 3 times a day, aspirin 81 mg a day, Lasix 40 mg once a day, pantoprazole 40 mg once a day, glimepiride 2 mg twice a day, benazepril 40 once a day, Symbicort 160/4.5 2 puffs twice a day, once a day, Prasugrel 10 mg once a day, Toprol 100 mg once a day, Pepcid 20 mg once a day, and Vicodin p.r.n. He continues to smoke and consume alcohol. PHYSICAL EXAMINATION: Blood pressure 132/80 with a pulse of 90 and regular, respirations 16 and he is afebrile. In GENERAL he appeared to be well developed, well nourished, in no acute distress. SKIN color is normal skin is warm, dry. Lymph nodes are not enlarged. HEAD, ears, eyes, nose, mouth and throat were normal. Carotids and NECK veins could not be assessed due to his cervical adiposity. CHEST was clear with decreased breath sounds. CARDIAC exam was normal sinus rhythm. ABDOMEN was protuberant, soft without masses or visceromegaly. EXTREMITIES seemed normal with diminished pulses. NEUROLOGICALLY he is intact. IMPRESSION: He is admitted to the hospital with diagnoses: 1. Peripheral vascular occlusive disease. 2. Atherosclerotic cardiovascular disease. 3. Coronary artery disease. 4. Chronic obstructive pulmonary disease. 5. Diabetes. RECOMMENDATIONS: None at this time. Thank you, respectfully MMODL / VIDYAN: [id number] /
== END 2021-04-13 09:50 | disposition home or self-care (01) ==
LOC: CATHCVL 07:16 → 6NMEDSUR 09:36 → CATHCVL 04-13 09:50
PROVIDERS: ATTEND Internal Medicine Interventional Cardiology
DX: I70.212 Atherosclerosis of native arteries of extremities with intermittent claudication, left leg (principal); E11.51 Type 2 diabetes mellitus with diabetic peripheral angiopathy without gangrene; E78.5 Hyperlipidemia, unspecified; I10 Essential (primary) hypertension; I25.10 Atherosclerotic heart disease of native coronary artery without angina pectoris; Z79.82 Long term (current) use of aspirin; Z79.899 Other long term (current) drug therapy; I65.23 Occlusion and stenosis of bilateral carotid arteries; Z95.5 Presence of coronary angioplasty implant and graft
CPT/HCPCS: 94640; 37225; 37252; 80048; 82565; 85025; C1894 ×2; C1769 ×4; C1714; C1753; C2623; J2250; J2001; J1644; Q9966

== ENCOUNTER 2021-04-22 19:03 | Observation (INO) | payer OTHER ==
[2021-04-22] MEDS ORDERED: SODIUM CHLORIDE 0.9% 500 ML 500 ML IV STA (21:59)
--- NOTE | 2021-04-22 22:00 | ED ---
GI Bleed HPI - General Chief complaint: GI Bleed Stated complaint: Blood in Stool Time Seen by Provider: 04/22/21 21:36 Source: patient, RN notes reviewed, old records reviewed Mode of arrival: ambulatory Limitations: no limitations - History of Present Illness Initial comments: This is a 66-year-old male to the emergency department today. Patient presents for evaluation of blood in the stool. Patient states blood in the stool started last night into today. 2 episodes of same. Patient is on Effient with recent arterial evaluation of lower extremities. Patient also is having some abdominal cramping but no abdominal pain. No nausea vomiting. No other complaints patient is not lightheaded dizzy or weak with no episodes of syncope - Related Data Home Medications Medication Instructions Recorded Confirmed HYDROcodone/APAP 5-325MG [[place] 1 tab PO BID PRN 04/21/20 04/22/21 5-325] Pantoprazole [Protonix] 40 mg PO DAILY 04/21/20 04/22/21 Albuterol Nebulized [Ventolin 2.5 mg INHALATION RT-QID PRN 04/22/20 04/22/21 Nebulized] Aspirin 81 mg PO DAILY 04/22/20 04/22/21 Cholecalciferol [Vitamin D3 (25 2,000 unit PO DAILY 04/22/20 04/22/21 Mcg = 1000 Iu)] Ergocalciferol [Vitamin D2 50,000 units PO WE 04/22/20 04/22/21 (DRISDOL)] Famotidine 20 mg PO DAILY 04/22/20 04/22/21 Fluticasone/Salmeterol 2 puff INHALATION RT-BID 04/22/20 04/22/21 [Fluticasone-Salmeterol 232-14] Furosemide [Lasix] 40 mg PO DAILY 04/22/20 04/22/21 Glimepiride [Amaryl] 2 mg PO BID 04/22/20 04/22/21 Hydrocortisone Cream 1 applic TOPICAL QID PRN 04/22/20 04/22/21 [Hydrocortisone 2.5% Cream] Loratadine 10 mg PO DAILY 04/22/20 04/22/21 Meclizine [Antivert] 25 mg PO DAILY PRN 04/22/20 04/22/21 Metoprolol Succinate (ER) [Toprol 100 mg PO DAILY 04/22/20 04/22/21 XL] Nitroglycerin Sl Tabs [Nitrostat] 0.4 mg SUBLINGUAL Q5M PRN 04/22/20 04/22/21 hydrOXYzine HCL 25 mg PO TID PRN 04/22/20 04/22/21 Atorvastatin [Lipitor] 40 mg PO DAILY 07/08/20 04/22/21 Isosorbide Mononitrate ER [Imdur] 30 mg PO HS 07/08/20 04/22/21 Prasugrel [Effient] 10 mg PO HS 07/13/20 04/22/21 Cyclobenzaprine [Flexeril] 10 mg PO TID PRN 01/07/21 04/22/21 Metoprolol Succinate (ER) [Toprol 50 mg PO HS 01/07/21 04/22/21 XL] Allergies Allergy/AdvReac Type Severity Reaction Status Date / Time Penicillins Allergy Rash/Hives/ Verified 04/22/21 23:20 sweats tamsulosin [From Flomax] AdvReac Diarrhea Verified 04/22/21 23:20 Review of Systems ROS Statement: Those systems with pertinent positive or pertinent negative responses have been documented in the HPI. ROS Other: All systems not noted in ROS Statement are negative. Past Medical History Past Medical History: Asthma, Coronary Artery Disease (CAD), COPD, Diabetes Mellitus, Hyperlipidemia, Hypertension, Myocardial Infarction ([place]), Osteoarthritis ([place]) Last Myocardial Infarction Date:: 04/21/2020 History of Any Multi-Drug Resistant Organisms: None Reported Past Surgical History: Coronary Bypass/CABG, Heart Catheterization, Heart Catheterization With Stent Additional Past Surgical History / Comment(s): Abd aortogram, 4 Vessel Bypass 06/08/2010, heart cath 07/13/20, 2 stents, colonoscopy, balloon procedure left leg Past Anesthesia/Blood Transfusion Reactions: No Reported Reaction Date of Last Stent Placement:: 08-03-20 Past Psychological History: Anxiety Smoking Status: Current some day smoker Past Alcohol Use History: Rare Past Drug Use History: None Reported - Past Family History Mother Family Medical History: Cancer Additional Family Medical History / Comment(s): Breast Cancer, at 63. Sister(s) Additional Family Medical History / Comment(s): Sister X2 w/ Lupus. Father Family Medical History: Diabetes Mellitus General Exam General appearance: alert, in no apparent distress Head exam: Present: atraumatic, normocephalic, normal inspection Eye exam: Present: normal appearance, PERRL, EOMI. Absent: scleral icterus, conjunctival injection, periorbital swelling ENT exam: Present: normal exam, mucous membranes moist Neck exam: Present: normal inspection. Absent: tenderness, meningismus, lymphadenopathy Respiratory exam: Present: normal lung sounds bilaterally. Absent: respiratory distress, wheezes, rales, rhonchi, stridor Cardiovascular Exam: Present: regular rate, normal rhythm, normal heart sounds. Absent: systolic murmur, diastolic murmur, rubs, gallop, clicks GI/Abdominal exam: Present: soft, normal bowel sounds. Absent: distended, tende rness, guarding, rebound, rigid Extremities exam: Present: normal inspection, full ROM, normal capillary refill. Absent: tenderness, pedal edema, joint swelling, calf tenderness Back exam: Present: normal inspection Neurological exam: Present: alert, oriented X3, CN II-XII intact Psychiatric exam: Present: normal affect, normal mood Skin exam: Present: warm, dry, intact, normal color. Absent: rash Course Vital Signs 04/22/21 20:07 Temperature 98.9 F Pulse Rate 89 Respiratory 18 Rate Blood Pressure 187/58 O2 Sat by Pulse 98 Oximetry - Reevaluation(s) Reevaluation #1: 04/23/21 Medical record is reviewed Symptoms are significantly improved Patient has been informed results and questions are answered No bloody bowel movements here in the ER Patient is in no distress Medical Decision Making - Medical Decision Making 66 male to the emergency department with blood in stool. Patient be admitted for evaluation and trending of hemoglobin - Lab Data Result diagrams: 04/22/21 22:30 04/22/21 22:30 Lab Results 04/22/21 04/22/21 04/22/21 Range/Units 22:30 22:30 22:30 WBC 15.4 H (3.8-10.6) k/uL RBC 4.85 (4.30-5.90) m/uL Hgb 15.6 (13.0-17.5) gm/dL Hct 46.0 (39.0-53.0) % MCV 94.7 (80.0-100.0) fL MCH 32.1 (25.0-35.0) pg MCHC 33.9 (31.0-37.0) g/dL RDW 13.6 (11.5-15.5) % Plt Count 308 (150-450) k/uL MPV 7.1 Neutrophils % 75 % Lymphocytes % 17 % Monocytes % 4 % Eosinophils % 2 % Basophils % 0 % Neutrophils # 11.6 H (1.3-7.7) k/uL Lymphocytes # 2.5 (1.0-4.8) k/uL Monocytes # 0.6 (0-1.0) k/uL Eosinophils # 0.4 (0-0.7) k/uL Basophils # 0.1 (0-0.2) k/uL PT 9.6 (9.0-12.0) sec INR 0.9 (<1.2) APTT 23.1 (22.0-30.0) sec Sodium 137 (137-145) mmol/L Potassium 4.1 (3.5-5.1) mmol/L Chloride 102 (98-107) mmol/L Carbon Dioxide 24 (22-30) mmol/L Anion Gap 11 mmol/L BUN 10 (9-20) mg/dL Creatinine 0.86 (0.66-1.25) mg/dL Est GFR (CKD-EPI)AfAm >90 (>60 ml/min/1.73 sqM) Est GFR (CKD-EPI)NonAf >90 (>60 ml/min/1.73 sqM) Glucose 138 H (74-99) mg/dL Calcium 9.6 (8.4-10.2) mg/dL Magnesium 1.9 (1.6-2.3) mg/dL Total Bilirubin 0.3 (0.2-1.3) mg/dL AST 32 (17-59) U/L ALT 35 (4-49) U/L Alkaline Phosphatase 190 H (38-126) U/L Troponin I (0.000-0.034) ng/mL Total Protein 7.3 (6.3-8.2) g/dL Albumin 4.3 (3.5-5.0) g/dL Blood Type Blood Type Recheck Bld Type Recheck Status Antibody Screen Spec Expiration Date 04/22/21 04/22/21 Range/Units 22:30 22:40 WBC (3.8-10.6) k/uL RBC (4.30-5.90) m/uL Hgb (13.0-17.5) gm/dL Hct (39.0-53.0) % MCV (80.0-100.0) fL MCH (25.0-35.0) pg MCHC (31.0-37.0) g/dL RDW (11.5-15.5) % Plt Count (150-450) k/uL MPV Neutrophils % % Lymphocytes % % Monocytes % % Eosinophils % % Basophils % % Neutrophils # (1.3-7.7) k/uL Lymphocytes # (1.0-4.8) k/uL Monocytes # (0-1.0) k/uL Eosinophils # (0-0.7) k/uL Basophils # (0-0.2) k/uL PT (9.0-12.0) sec INR (<1.2) APTT (22.0-30.0) sec Sodium (137-145) mmol/L Potassium (3.5-5.1) mmol/L Chloride (98-107) mmol/L Carbon Dioxide (22-30) mmol/L Anion Gap mmol/L BUN (9-20) mg/dL Creatinine (0.66-1.25) mg/dL Est GFR (CKD-EPI)AfAm (>60 ml/min/1.73 sqM) Est GFR (CKD-EPI)NonAf (>60 ml/min/1.73 sqM) Glucose (74-99) mg/dL Calcium (8.4-10.2) mg/dL Magnesium (1.6-2.3) mg/dL Total Bilirubin (0.2-1.3) mg/dL AST (17-59) U/L ALT (4-49) U/L Alkaline Phosphatase (38-126) U/L Troponin I <0.012 (0.000-0.034) ng/mL Total Protein (6.3-8.2) g/dL Albumin (3.5-5.0) g/dL Blood Type O Positive Blood Type Recheck O Pos Bld Type Recheck Status No Antibody Screen NEGATIVE Spec Expiration Date 04/25/2021 - 2339 Disposition Clinical Impression: Lower gastrointestinal hemorrhage Disposition: ADMITTED IP TO THIS [facility] Condition: Good Is patient prescribed a controlled substance at d/c from ED?: No
[2021-04-22 23:07] LABS: Basophils # (A) 0.1 k/uL (0-0.2); Basophils % (A) 0 %; Eosinophils # (A) 0.4 k/uL (0-0.7); Eosinophils % (A) 2 %; HGB 15.6 gm/dL (13.0-17.5); Lymphocytes # (A) 2.5 k/uL (1.0-4.8); Lymphocytes % (A) 17 %; MCH 32.1 pg (25.0-35.0); MCHC 33.9 g/dL (31.0-37.0); MCV 94.7 fL (80.0-100.0); Mean Platelet Volume 7.1; Monocytes # (A) 0.6 k/uL (0-1.0); Monocytes % (A) 4 %; Neutrophils # (A) 11.6 k/uL (1.3-7.7); Neutrophils % (A) 75 %; Platelet Count 308 k/uL (150-450); RBC 4.85 m/uL (4.30-5.90); RDW 13.6 % (11.5-15.5); WBC 15.4 k/uL (3.8-10.6)
[2021-04-22 23:23] LABS: INR 0.9 (<1.2); Partial Thromboplastin Time 23.1 sec (22.0-30.0); Prothrombin Time 9.6 sec (9.0-12.0)
[2021-04-22 23:44] LABS: ALT 35 U/L (4-49); AST 32 U/L (17-59); African American GFR (CKD) >90 (>60 ml/min/1.73 sqM); Albumin 4.3 g/dL (3.5-5.0); Alkaline Phosphatase 190 U/L (38-126); Anion Gap 11 mmol/L; Blood Urea Nitrogen 10 mg/dL (9-20); Calcium 9.6 mg/dL (8.4-10.2); Carbon Dioxide 24 mmol/L (22-30); Chloride 102 mmol/L (98-107); Glucose 138 mg/dL (74-99); Magnesium 1.9 mg/dL (1.6-2.3); Non-African American GFR(CKD) >90 (>60 ml/min/1.73 sqM); Potassium 4.1 mmol/L (3.5-5.1); Sodium 137 mmol/L (137-145); Total Bilirubin 0.3 mg/dL (0.2-1.3); Total Protein 7.3 g/dL (6.3-8.2)
[2021-04-22] MEDS ORDERED: SODIUM CHLORIDE 0.9% 1,000 ML IV SCH (23:45)
[2021-04-22] MEDS ORDERED: NALOXONE 0.4 MG/ML 1 ML VIAL IV PRN (23:48)
[2021-04-22] MEDS ORDERED: ONDANSETRON 4 MG/2 ML VIAL IVP PRN (23:48)
[2021-04-23] MEDS ORDERED: ALBUTEROL NEBULIZED 2.5 MG/3 ML INHALATION PRN (02:52)
[2021-04-23] MEDS ORDERED: HYDROcodone/APAP 5-325MG 1 EACH TAB PO PRN (02:52)
[2021-04-23] MEDS ORDERED: NITROGLYCERIN SL TABS 0.4 MG TAB SUBLINGUAL PRN (02:52)
[2021-04-23] MEDS ORDERED: CYCLOBENZAPRINE 10 MG TAB PO PRN (02:52)
[2021-04-23] MEDS ORDERED: hydrOXYzine HCL 25 MG TAB PO PRN (03:00)
[2021-04-23 06:54] LABS: Basophils % (A) 0 %; Eosinophils # (A) 0.3 k/uL (0-0.7); Eosinophils % (A) 2 %; HCT 43.6 % (39.0-53.0); HGB 14.5 gm/dL (13.0-17.5); Lymphocytes # (A) 2.1 k/uL (1.0-4.8); Lymphocytes % (A) 18 %; MCH 31.8 pg (25.0-35.0); MCHC 33.3 g/dL (31.0-37.0); MCV 95.6 fL (80.0-100.0); Mean Platelet Volume 7.5; Monocytes # (A) 0.5 k/uL (0-1.0); Monocytes % (A) 4 %; Neutrophils # (A) 8.6 k/uL (1.3-7.7); Neutrophils % (A) 74 %; Platelet Count 253 k/uL (150-450); RBC 4.57 m/uL (4.30-5.90); RDW 13.7 % (11.5-15.5); WBC 11.7 k/uL (3.8-10.6)
[2021-04-23 07:06] LABS: African American GFR (CKD) >90 (>60 ml/min/1.73 sqM); Anion Gap 8 mmol/L; Blood Urea Nitrogen 10 mg/dL (9-20); Calcium 9.1 mg/dL (8.4-10.2); Carbon Dioxide 28 mmol/L (22-30); Chloride 102 mmol/L (98-107); Glucose 135 mg/dL (74-99); Non-African American GFR(CKD) >90 (>60 ml/min/1.73 sqM); Potassium 4.2 mmol/L (3.5-5.1); Sodium 138 mmol/L (137-145)
[2021-04-23 07:58] VITALS: RESP 17
[2021-04-23] MEDS ORDERED: SYMBICORT 160-4.5 MCG INHALER INHALATION SCH (08:00)
[2021-04-23] MEDS ORDERED: PANTOPRAZOLE 40 MG/10 ML VIAL IV SCH (09:00)
[2021-04-23] MEDS ORDERED: METOPROLOL SUCCINATE (ER) 100 MG TAB.ER.24H PO SCH (09:00)
[2021-04-23] MEDS ORDERED: CHOLECALCIFEROL 25 MCG (1000 IU) TABLET PO SCH (09:00)
[2021-04-23] MEDS ORDERED: FAMOTIDINE 20 MG TAB PO SCH (09:00)
[2021-04-23] MEDS ORDERED: ATORVASTATIN 40 MG TAB PO SCH (09:00)
[2021-04-23] MEDS ORDERED: MECLIZINE 25 MG TAB PO PRN (09:00)
[2021-04-23] MEDS ORDERED: LORATADINE 10 MG TAB PO SCH (09:00)
[2021-04-23] MEDS: IOPAMIDOL CONTRAST (ORAL USE) VIAL PO PRN ×2 (13:02→14:05)
[2021-04-23 13:42] LABS: HCT 45.9 % (39.0-53.0); HGB 15.3 gm/dL (13.0-17.5); MCH 32.2 pg (25.0-35.0); MCHC 33.3 g/dL (31.0-37.0); MCV 96.8 fL (80.0-100.0); Mean Platelet Volume 7.3; Platelet Count 285 k/uL (150-450); RBC 4.74 m/uL (4.30-5.90); RDW 13.8 % (11.5-15.5); WBC 10.4 k/uL (3.8-10.6)
--- NOTE | 2021-04-23 13:45 | P.GSCN ---
History of Present Illness Consult date: 04/23/21 History of present illness: This is a 66-year-old male presented to Hospital for chief complaint of GI bleeding passed a bloody bowel movement. He recently had a procedure per cardiology for angioplasty for his lower extremity. He is on blood thinners. He did have a appointment with me for a screening colonoscopy that we were going to plan once he got cardiac clearance. He was not having any GI bleeding at that time. They have been more than 10 years since his last colonoscopy. Past Medical History Past Medical History: Asthma, Coronary Artery Disease (CAD), COPD, Diabetes Mellitus, Hyperlipidemia, Hypertension, Myocardial Infarction ([place]), Osteoarthritis (OA) Last Myocardial Infarction Date:: 04/21/2020 History of Any Multi-Drug Resistant Organisms: None Reported Past Surgical History: Coronary Bypass/CABG, Heart Catheterization, Heart Ca theterization With Stent Additional Past Surgical History / Comment(s): Abd aortogram, 4 Vessel Bypass 06/08/2010, heart cath 07/13/20, 2 stents, colonoscopy, balloon procedure left leg Past Anesthesia/Blood Transfusion Reactions: No Reported Reaction Date of Last Stent Placement:: 08-03-20 Past Psychological History: Anxiety Smoking Status: Current some day smoker Past Alcohol Use History: Rare Past Drug Use History: None Reported - Past Family History Mother Family Medical History: Cancer Additional Family Medical History / Comment(s): Breast Cancer, at 63. Sister(s) Additional Family Medical History / Comment(s): Sister X2 w/ Lupus. Father Family Medical History: Diabetes Mellitus Medications and Allergies Home Medications Medication Instructions Recorded Confirmed Type HYDROcodone/APAP 5-325MG [[place] 1 tab PO BID PRN 04/21/20 04/22/21 History 5-325] Pantoprazole [Protonix] 40 mg PO DAILY 04/21/20 04/22/21 History Albuterol Nebulized [Ventolin 2.5 mg INHALATION RT-QID PRN 04/22/20 04/22/21 History Nebulized] Aspirin 81 mg PO DAILY 04/22/20 04/22/21 History Cholecalciferol [Vitamin D3 (25 2,000 unit PO DAILY 04/22/20 04/22/21 History Mcg = 1000 Iu)] Ergocalciferol [Vitamin D2 50,000 units PO WE 04/22/20 04/22/21 History (DRISDOL)] Famotidine 20 mg PO DAILY 04/22/20 04/22/21 History Fluticasone/Salmeterol 2 puff INHALATION RT-BID 04/22/20 04/22/21 History [Fluticasone-Salmeterol 232-14] Furosemide [Lasix] 40 mg PO DAILY 04/22/20 04/22/21 History Glimepiride [Amaryl] 2 mg PO BID 04/22/20 04/22/21 History Hydrocortisone Cream 1 applic TOPICAL QID PRN 04/22/20 04/22/21 History [Hydrocortisone 2.5% Cream] Loratadine 10 mg PO DAILY 04/22/20 04/22/21 History Meclizine [Antivert] 25 mg PO DAILY PRN 04/22/20 04/22/21 History Metoprolol Succinate (ER) [Toprol 100 mg PO DAILY 04/22/20 04/22/21 History XL] Nitroglycerin Sl Tabs [Nitrostat] 0.4 mg SUBLINGUAL Q5M PRN 04/22/20 04/22/21 History hydrOXYzine HCL 25 mg PO TID PRN 04/22/20 04/22/21 History Atorvastatin [Lipitor] 40 mg PO DAILY 07/08/20 04/22/21 History Isosorbide Mononitrate ER [Imdur] 30 mg PO HS 07/08/20 04/22/21 History Prasugrel [Effient] 10 mg PO HS 07/13/20 04/22/21 History Cyclobenzaprine [Flexeril] 10 mg PO TID PRN 01/07/21 04/22/21 History Metoprolol Succinate (ER) [Toprol 50 mg PO HS 01/07/21 04/22/21 History XL] Allergies Allergy/AdvReac Type Severity Reaction Status Date / Time Penicillins Allergy Rash/Hives/ Verified 04/22/21 23:20 sweats tamsulosin [From Flomax] AdvReac Diarrhea Verified 04/22/21 23:20 Surgical - Exam Osteopathic Statement: *. No significant issues noted on an osteopathic structural exam other than those noted in the History and Physical/Consult. Vital Signs Temp Pulse Resp BP Pulse Ox 98.9 F 89 18 187/58 98 04/22/21 20:07 04/22/21 20:07 04/22/21 20:07 04/22/21 20:07 04/22/21 20:07 - General well developed, well nourished, no distress - Abdomen Abdomen: soft, non tender - Psychiatric oriented to time, oriented to person, oriented to place Results - Labs 04/23/21 05:52 04/23/21 05:52 Abnormal Lab Results - Last 24 Hours (Table) 04/22/21 04/22/21 04/23/21 Range/Units 22:30 22:30 05:52 WBC 15.4 H 11.7 H (3.8-10.6) k/uL Neutrophils # 11.6 H 8.6 H (1.3-7.7) k/uL Glucose 138 H (74-99) mg/dL Alkaline Phosphatase 190 H (38-126) U/L 04/23/21 Range/Units 05:52 WBC (3.8-10.6) k/uL Neutrophils # (1.3-7.7) k/uL Glucose 135 H (74-99) mg/dL Alkaline Phosphatase (38-126) U/L Diabetes panel 04/22/21 04/23/21 Range/Units 22:30 05:52 Sodium 137 138 (137-145) mmol/L Potassium 4.1 4.2 (3.5-5.1) mmol/L Chloride 102 102 (98-107) mmol/L Carbon Dioxide 24 28 (22-30) mmol/L BUN 10 10 (9-20) mg/dL Creatinine 0.86 0.86 (0.66-1.25) mg/dL Glucose 138 H 135 H (74-99) mg/dL Calcium 9.6 9.1 (8.4-10.2) mg/dL AST 32 (17-59) U/L ALT 35 (4-49) U/L Alkaline Phosphatase 190 H (38-126) U/L Total Protein 7.3 (6.3-8.2) g/dL Albumin 4.3 (3.5-5.0) g/dL Calcium panel 04/22/21 04/23/21 Range/Units 22:30 05:52 Calcium 9.6 9.1 (8.4-10.2) mg/dL Albumin 4.3 (3.5-5.0) g/dL Pituitary panel 04/22/21 04/23/21 Range/Units 22:30 05:52 Sodium 137 138 (137-145) mmol/L Potassium 4.1 4.2 (3.5-5.1) mmol/L Chloride 102 102 (98-107) mmol/L Carbon Dioxide 24 28 (22-30) mmol/L BUN 10 10 (9-20) mg/dL Creatinine 0.86 0.86 (0.66-1.25) mg/dL Glucose 138 H 135 H (74-99) mg/dL Calcium 9.6 9.1 (8.4-10.2) mg/dL Adrenal panel 04/22/21 04/23/21 Range/Units 22:30 05:52 Sodium 137 138 (137-145) mmol/L Potassium 4.1 4.2 (3.5-5.1) mmol/L Chloride 102 102 (98-107) mmol/L Carbon Dioxide 24 28 (22-30) mmol/L BUN 10 10 (9-20) mg/dL Creatinine 0.86 0.86 (0.66-1.25) mg/dL Glucose 138 H 135 H (74-99) mg/dL Calcium 9.6 9.1 (8.4-10.2) mg/dL Total Bilirubin 0.3 (0.2-1.3) mg/dL AST 32 (17-59) U/L ALT 35 (4-49) U/L Alkaline Phosphatase 190 H (38-126) U/L Total Protein 7.3 (6.3-8.2) g/dL Albumin 4.3 (3.5-5.0) g/dL Assessment and Plan Assessment: GI bleeding Plan: Patient does not have GI bleeding that requires surgical intervention at this time. I recommend that if he has active GI bleeding that he be evaluated by a GI service or possibly interventional radiology. If he does not have active GI bleeding and he can follow-up with me as an outpatient for screening colonoscopy. Cardiology recommendations on anticoagulation.
[2021-04-23 14:59] VITALS: BP 135/84; PULSE 81; TEMP 98
--- NOTE | 2021-04-23 15:22 | CT ---
EXAMINATION TYPE: CT abdomen pelvis w con DATE OF EXAM: 04/23/2021 COMPARISON: None HISTORY: GI bleed CT DLP: 1919 mGycm Automated exposure control for dose reduction was used. CONTRAST: Performed with IV Contrast, patient injected with 100 mL of Isovue 300. Lung bases are clear. There i s no pleural effusion. There is fatty infiltration of the liver. Spleen is intact. Stomach is intact. There is no pancreatic mass. Gallbladder appears normal. There is no adrenal mass. Kidneys show satisfactory contrast opacification. There is no hydronephrosi s. Ureters are not dilated. There is no retroperitoneal adenopathy. Appendix appears normal. There ar e some sigmoid diverticula. I see no diverticulitis. Bladder distends smoothly. There is small fat co ntaining right inguinal hernia. There is no mesenteric edema. There is no ascites or free air. There is no sign of a bowel obstructio n. Delayed images show normal renal excretion. Lumbar vertebra have normal alignment. There is multilevel mild vacuum disc. Bony pelvis is intact. H ip joints are intact. Sacroiliac joints are intact. IMPRESSION: There is mild fatty infiltration of the liver. Sigmoid diverticulosis. No acute abnormality of the abdomen pelvis.
[2021-04-23] MEDS ORDERED: ISOSORBIDE MONONITRATE ER 30 MG TAB.ER.24H PO SCH (21:00)
[2021-04-23] MEDS ORDERED: METOPROLOL SUCCINATE (ER) 50 MG TAB.ER.24H PO SCH (21:00)
--- NOTE | 2021-04-23 21:04 | HP ---
HISTORY AND PHYSICAL HISTORY AND PHYSICAL AND DISCHARGE SUMMARY: I am covering for Dr. Logan. DATE OF SERVICE: 04/23/2021. CHIEF COMPLAINT: GI bleed, blood in the stools. HISTORY OF PRESENT ILLNESS: This 66-year-old gentleman with a past medical history of CAD, asthma, COPD, diabetes, hypertension, history of myocardial infarction, DJD, being followed by Dr. Logan in the outpatient is complaining of gastrointestinal bleed. The patient had some old blood in the stool. There is some 2 episodes and there is no history of fever, rigors or chills. The patient came to [facility] and hemoglobin found to be 15.6, 14.5 and 15.3, which essentially within normal limits. The patient apparently had an outpatient colonoscopy scheduled by Dr. Todd. The CT scan showed mild fatty infiltration of the liver and sigmoid diverticulosis. No other abnormalities noted. There is no history of fever, rigors, chills at this time. PAST MEDICAL HISTORY: History of asthma, CAD, COPD, diabetes, hypertension, hyperlipidemia, myocardial infarction. MEDICATIONS: Prior to admission, home medications are: Effient, Toprol-XL, Imdur, Jal, hydroxyzine, Protonix, Nitrostat, Toprol-XL, Antivert, Amaryl, Lasix, fluticasone, Pepcid, Drisdol, Flexeril. Lipitor, aspirin, Ventolin. ALLERGIES: PENICILLIN AND FLOMAX. FAMILY HISTORY: No history of breast cancer. SOCIAL HISTORY: History of alcohol. REVIEW OF SYSTEMS: ENT: No diminished hearing. No diminished vision. CARDIOVASCULAR system: No angina or palpitations. RESPIRATION: As mentioned earlier. GI: As mentioned earlier. : No dysuria. NERVOUS SYSTEM: No numbness or weakness. ALLERGY/IMMUNOLOGY: No asthma or hayfever. MUSCULOSKELETAL: As mentioned earlier. HEMATOLOGY/ONCOLOGY: No history of anemia. ENDOCRINE: No history of diabetes or hypothyroidism. CONSTITUTIONAL: As mentioned earlier. DERMATOLOGY: Negative. RHEUMATOLOGY: Negative. PSYCHIATRY as mentioned earlier. PHYSICAL EXAMINATION: Alert and oriented times three. Pulse 81. Blood pressure 135/84, respiration 17, temperature 98 degrees, pulse ox 100 percent on room air. HEENT: Conjunctivae normal. NECK: No JVD. CARDIOVASCULAR: S1, S2 muffled. RESPIRATORY SYSTEM: Breath sounds diminished at the bases. No rhonchi. No crackles. ABDOMEN: Soft, obese, nontender. No mass palpable. LEGS: No edema. No swelling. NERVOUS SYSTEM: Higher functions as mentioned earlier. Moves all four limbs. No focal deficits. LYMPHATICS: No lymph nodes palpable in the neck, axillae or groin. SKIN: No ulcer, rashes or bleeding. JOINTS: No active deforming arthropathy. LAB STUDIES: WBC 10.3, hemoglobin 15.3. Other labs are noted. ASSESSMENT: 1. Lower gastrointestinal bleeding for evaluation, possibly diverticular bleed. 2. No evidence of anemia currently. 3. Asthma. 4. Coronary artery disease and history of coronary artery bypass grafting and stent. 5. Chronic obstructive pulmonary disease. 6. Diabetes mellitus type 2. 7. Hypertension. 8. Hyperlipidemia. 9. Myocardial infarction. 10.History of degenerative joint disease. 11.History of anxiety. 12.History of nicotine dependence. 13.FULL CODE. RECOMMENDATIONS AND DISCUSSION: I recommend to continue current medications and symptomatic treatment. Otherwise at this time, the patient appears to be stable. I would recommend to continue the current medications. Resume the home medications and hold antiplatelet agents bleeding. Otherwise recommend close outpatient followup with Cardiology, surgery and possibly Gastroenterology. Guarded prognosis. Further recommendations to follow. DISCHARGE ADVICE AND MEDICATIONS: 1. Diet is cardiac diet. 2. Activity limited until followup. 3. Follow up with Dr. Logan in 1-2 days. 4. Follow up with surgery, Gastroenterology and Cardiology as mentioned earlier. 5. Amaryl 2 mg p.o. b.i.d. 6. Antivert 25 mg daily. 7. Pepcid 20 mg daily. 8. Flexeril as before. 9. Fluticasone salmeterol as before. 10. as before. 11.Imdur ER 30 mg q.h.s. 12.Lasix 40 mg p.o. daily. 13.Lipitor 40 mg p.o. daily. 14.Loratadine 10 mg p.o. daily. 15.Jal 5 mg daily. 16.Protonix 40 mg daily. 17.Toprol-XL 100 mg daily and 50 mg q.h.s. 18.Albuterol p.r.n. 19.Vitamin D2 50,000 daily. 20.Aspirin 81 mg daily. 21.Effient 10 mg q.h.s., hold if there is any bleeding otherwise continue to monitor. MMODL / IJN: [id number] /
== END 2021-04-23 16:08 | disposition home or self-care (01) ==
LOC: EC 19:03 → 6NMEDSUR 23:48
PROVIDERS: ADMIT Family Medicine; ATTEND Family Medicine
DX: K92.2 Gastrointestinal hemorrhage, unspecified (principal); I25.10 Atherosclerotic heart disease of native coronary artery without angina pectoris; J44.9 Chronic obstructive pulmonary disease, unspecified; K57.30 Diverticulosis of large intestine without perforation or abscess without bleeding; K76.0 Fatty (change of) liver, not elsewhere classified; E11.9 Type 2 diabetes mellitus without complications; I10 Essential (primary) hypertension; E78.5 Hyperlipidemia, unspecified; I25.2 Old myocardial infarction; M19.90 Unspecified osteoarthritis, unspecified site; F41.9 Anxiety disorder, unspecified; F17.200 Nicotine dependence, unspecified, uncomplicated; Z88.0 Allergy status to penicillin; Z88.9 Allergy status to unspecified drugs, medicaments and biological substances; Z79.82 Long term (current) use of aspirin; Z79.84 Long term (current) use of oral hypoglycemic drugs; Z79.899 Other long term (current) drug therapy; Z95.1 Presence of aortocoronary bypass graft; Z80.3 Family history of malignant neoplasm of breast; Z83.2 Family history of diseases of the blood and blood-forming organs and certain disorders involving the immune mechanism; Z83.3 Family history of diabetes mellitus
CPT/HCPCS: 96374; 99285; 36415; 94640; 86900; 86901; 80053; 80048; 83735; 84484; 85025 ×2; 85027; 85610; 85730; 86850; 74177; G0378; C9113; Q9967

== ENCOUNTER 2024-04-08 18:45 | Inpatient (IN) | payer MEDICARE, OTHER ==
[2024-04-08] MEDS ORDERED: ASPIRIN 81 MG ONE (18:47)
[2024-04-08] MEDS ORDERED: NITROGLYCERIN OINT 1 INCH/GM PACKET TOPICAL ONE (18:47)
[2024-04-08] MEDS ORDERED: METOPROLOL TARTRATE 50 MG TAB ONE (21:44)
[2024-04-08] MEDS ORDERED: GLIMEPIRIDE 2 MG TAB ONE (21:45)
[2024-04-08] MEDS ORDERED: HYDROcodone/APAP 7.5-325MG 1 EACH TAB ONE (21:45)
[2024-04-09] MEDS ORDERED: METOPROLOL TARTRATE 25 MG TAB ONE (09:47)
[2024-04-09] MEDS ORDERED: ASPIRIN 325 MG TAB ONE (09:47)
[2024-04-09] MEDS ORDERED: MONTELUKAST 10 MG TAB ONE (09:48)
[2024-04-09] MEDS ORDERED: FAMOTIDINE 20 MG TAB ONE (09:48)
[2024-04-09] MEDS ORDERED: LORATADINE 10 MG TAB ONE (09:48)
[2024-04-09] MEDS ORDERED: oxyBUTYnin chloride 5 MG TAB ONE (09:48)
[2024-04-09] MEDS ORDERED: ATORVASTATIN 80 MG TAB ONE (09:48)
[2024-04-09] MEDS ORDERED: CLOPIDOGREL 75 MG TAB ONE (09:48)
[2024-04-09] MEDS ORDERED: PANTOPRAZOLE 40 MG TABLET PO ONE (09:48)
[2024-04-09] MEDS ORDERED: HYDROcodone/APAP 7.5-325MG 1 EACH TAB ONE (09:49)
[2024-04-09] MEDS ORDERED: METOPROLOL TARTRATE 50 MG TAB ONE (09:57)
[2024-04-09] MEDS ORDERED: LOSARTAN 50 MG TAB ONE (10:04)
[2024-04-09] MEDS ORDERED: HEPARIN SODIUM,PORCINE 10,000 UNIT/ML 1 ML VIAL ONE (11:40)
[2024-04-09] MEDS ORDERED: SODIUM CHLORIDE 0.9% 1,000 ML BAG ONE ×2 (11:40→12:30)
[2024-04-09] MEDS ORDERED: SODIUM CHLORIDE 0.9% 50 ML BAG IV ONE (11:40)
[2024-04-09] MEDS ORDERED: LIDOCAINE 1% INJ 10MG/ML (20 ML MDV) ONE (11:42)
[2024-04-09] MEDS ORDERED: MIDAZOLAM 2 MG/2 ML VIAL ONE (11:42)
[2024-04-09] MEDS: IOPAMIDOL-370 200ML BTL INJ ONE (12:02)
[2024-04-09] MEDS ORDERED: HYDROCORTISONE 1% CREAM 30 GM TUBE TOPICAL ONE (12:30)
--- NOTE | 2024-05-02 11:40 | CC ---
CARDIAC CATHETERIZATION REPORT PERFORMING PHYSICIAN: Tejinder Melendez. PROCEDURES PERFORMED: 1. Selective left and right coronary angiogram. 2. SVG to LCX angiogram. 3. Left heart catheterization. 4. Ultrasound-guided access of the right common femoral artery and right common femoral artery angiogram. INDICATION: Unstable angina. COMPLICATIONS: None. LEVEL OF SEDATION: Moderate with sedation length of 20 minutes. PROCEDURE DESCRIPTION: After obtaining an informed consent, the patient was brought to cardiac laboratory chemist. The right common femoral artery was cannulated using micropuncture technique under ultrasound guidance, the micropuncture wire passed easily. Then, I placed a 6-American 11 cm sheath in the right common femoral artery. Selective right and left coronary angiogram performed using JL4 and JR4 catheters. SVG to LCX angiogram was performed using the JR4 catheter. After that, I did left heart catheterization using 6-American pigtail catheter and then selective right common femoral artery angiogram through the sheath. The procedure was completed with no complication. SELECTIVE CORONARY ANGIOGRAM: 1. The left main appeared to have mild disease only. It bifurcates into an LCX and LAD. 2. The LCX is occluded in the proximal portion. 3. The LAD has stent in the proximal portion and the stent appeared to be patent and the mid LAD has myocardial bridging. The LAD gives rise into a medium-sized diagonal branch, which has severe disease, but appeared to be diffuse. 4. The RCA is a moderate caliber vessel with patent stent in the mid portion. CORONARY BYPASSES ANGIOGRAM: The SVG to distal left circumflex is patent. HEMODYNAMICS: The LVEDP was about 10 to 12 mmHg with no significant gradient was identified across aortic valve. CONCLUSION: 1. No evidence of high-grade stenosis was identified. 2. Normal left-sided filling pressure. POSTPROCEDURE MANAGEMENT: Medical treatment and follow up with the patient. MMODL / IJN: [id number] /
--- NOTE | 2024-05-02 12:40 | DS ---
DISCHARGE SUMMARY CHIEF COMPLAINT: Chest pain. HISTORY OF PRESENT ILLNESS AND PHYSICAL EXAMINATION: Details of this man's history and physical can be found in the initial workup. LABORATORY STUDIES: While he was in the hospital, he had laboratory studies, details of which can be found in the laboratory section of his chart. COURSE IN THE HOSPITAL: After admission, he was placed on bedrest. Started on intravenous fluids. Had serial EKGs and enzymes. He was seen and followed by Cardiology. He went for cardiac cath, which failed to demonstrate any critical artery stenoses. He was doing well and he was stable, and it was felt that he could be discharged and followed as an outpatient. FINAL DIAGNOSES: 1. Chest pain. 2. Coronary artery disease. 3. Atherosclerotic cardiovascular disease. 4. Hypertension. 5. Chronic obstructive pulmonary disease. OPERATIONS: Cardiac cath. He is improved. MMODL / IJN: [id number] /
--- NOTE | 2024-05-05 14:43 | CA ---
Transthoracic Echo Report Name: Sonu Judge Age: 69 Gender: M : 1955 Exam Date: 04/09/2024 09:04 Exam Location: [facility] Ht (in): 62 Wt (lb): 218 Ordering Physician: Attending/Referring Phys: License Inspector Leonie Wood RDCS Procedure CPT: Indications: Cardiac Hx: Technical Quality: Poor Contrast 1: Definity Total Dose (mL): 2 Contrast 2: Total Dose (mL): MEASUREMENTS (Male / Female) Normal Values 2D ECHO LV Diastolic Diameter PLAX 4.0 cm 4.2 - 5.9 / 3.9 - 5.3 cm LV Systolic Diameter PLAX 2.8 cm IVS Diastolic Thickness 1.2 cm 0.6 - 1.0 / 0.6 - 0.9 cm LVPW Diastolic Thickness 1.1 cm 0.6 - 1.0 / 0.6 - 0.9 cm LV Relative Wall Thickness 0.6 RV Internal Dim ED PLAX 2.0 cm LVOT Diameter 1.8 cm LA Systolic Diameter LX 4.3 cm 3.0 - 4.0 / 2.7 - 3.8 cm LA Volume 47.8 cm??? 18 - 58 / 22 - 52 cm??? LA Volume Index 22.4 cm???/m??? 16 - 28 cm???/m??? M-MODE Aortic Root Diameter MM 3.6 cm LA Systolic Diameter MM 4.1 cm LA Ao Ratio MM 1.1 AV Cusp Separation MM 1.3 cm DOPPLER AV Peak Velocity 138.4 cm/s AV Peak Gradient 7.7 mmHg AV Mean Velocity 103.8 cm/s AV Mean Gradient 4.7 mmHg AV Velocity Time Integral 27.8 cm LVOT Peak Velocity 106.2 cm/s LVOT Peak Gradient 4.5 mmHg LVOT Velocity Time Integral 23.0 cm LVOT Stroke Volume 58.8 cm??? LVOT Stroke Volume Index 29.6 ml/m??? LVOT Cardiac Index 2259.2 cm???/min???m??? AV Area Cont Eq vti 2.1 cm??? AV Area Cont Eq pk 2.0 cm??? MV Area PHT 2.6 cm??? Mitral E Point Velocity 86.2 cm/s Mitral A Point Velocity 90.1 cm/s Mitral E to A Ratio 1.0 MV Deceleration Time 296.1 ms TR Peak Velocity 241.3 cm/s TR Peak Gradient 23.3 mmHg Right Ventricular Systolic Press 28.3 mmHg FINDINGS Left Ventricle Left ventricular ejection fraction is estimated at 55-60 %. Mildly increased septal wall thickness. Normal left ventricular wall motion. Left ventricular cavity size normal. Right Ventricle Normal right ventricular size and function. Right ventricular systolic pressure within normal limits. Right Atrium Mild right atrial dilatation. Left Atrium Mildly increased left atrial diameter. Mitral Valve Structurally normal mitral valve. Mild mitral regurgitation. No mitral stenosis. Aortic Valve Trileaflet aortic valve. No aortic stenosis. No aortic regurgitation. Diffuse thickening (sclerosis) of the aortic valve cusps without reduced excursion. Tricuspid Valve Structurally normal tricuspid valve. Mild tricuspid regurgitation. No tricuspid stenosis. Pulmonic Valve Structurally normal pulmonic valve. Mild pulmonic regurgitation. No pulmonic stenosis. Pericardium No pericardial or pleural effusion. Aorta Aorta at upper limits of normal. CONCLUSIONS 1. Normal left ventricular size and systolic function 2. Mild mitral and tricuspid regurgitation Technically difficult study. Definity ECHO contrast used for improved visualization of the endocardial borders (inadequate visualization of two or more contiguous segments). Previewed by: Dr. Yisel Benitez MD (Electronically Signed) Final Date: 09 April 2024 11:40
--- NOTE | 2024-05-06 09:59 | XR ---
Patient: Sonu Judge Ordering Physician: Unknown, Unknown ID: [id number] Phone, Pager: Phone : N/A Pager: N/A : 1955 Age/Gender: 69Y, M Primary Location: N/A Procedure: XR CHEST 2V Study Date: 04/08/2024 4:33:00 PM EXAMINATION TYPE: XR chest 2V DATE OF EXAM: 04/08/2024 4:38 PM CLINICAL INDICATION: Shortness of breath. COMPARISON: Chest radiographs from 06/08/2010. TECHNIQUE: XR chest 2V Frontal view of the chest. FINDINGS: Lungs/Pleura: There is no evidence of pleural effusion, focal consolidation, or pneumothorax. Pulmonary vascularity: Unremarkable. Heart/mediastinum: Cardiomediastinal silhouette is unremarkable. Musculoskeletal: No acute osseous pathology. Midline sternotomy wires are noted. IMPRESSION: No acute cardiopulmonary disease/process.
--- NOTE | 2024-05-15 14:47 | HP ---
HISTORY AND PHYSICAL CHIEF COMPLAINT: Chest pain. HISTORY OF PRESENT ILLNESS: This is another admission for this gentleman who has had longstanding history of coronary artery disease and hypertension. He continues to smoke. He came in with chest pain and was admitted. He denies syncope, palpitations, orthopnea, PND, etc. Past medical history, family history, personal and social histories are all otherwise unremarkable and noncontributory. PHYSICAL EXAMINATION: VITAL SIGNS: Blood pressure is 140/92 with a pulse of 88, respirations of 36, and he is afebrile. GENERAL: He appears to be overweight and in no acute distress. SKIN: Color is normal, and skin is warm, dry. HEAD, EARS, EYES, NOSE, MOUTH AND THROAT: Normal. CHEST: Demonstrates decreased breath sounds throughout. CARDIAC: Demonstrates sinus rhythm. ABDOMEN: Soft and nontender. EXTREMITIES: Normal. NEUROLOGICAL: Intact. IMPRESSION: He is admitted to the hospital with diagnoses of. 1. Chest pain. 2. History of coronary artery disease. 3. Chronic obstructive pulmonary disease. 4. Hypertension. PLAN: 1. Bedrest. 2. IV fluids. 3. Serial EKGs and enzymes. 4. Cardiology consult. MMODL / IJN: [id number] /
== END 2024-04-09 20:00 | disposition home or self-care (01) | DRG 287 ==
LOC: 6NMEDSUR 18:45
PROVIDERS: ADMIT Emergency Medicine; ATTEND Emergency Medicine
PROC: B2111ZZ Fluoroscopy of Multiple Coronary Arteries using Low Osmolar Contrast (ICD-10-PCS; 2024-04-09)
PROC: B2121ZZ Fluoroscopy of Single Coronary Artery Bypass Graft using Low Osmolar Contrast (ICD-10-PCS; 2024-04-09)
PROC: 4A023N7 Measurement of Cardiac Sampling and Pressure, Left Heart, Percutaneous Approach (ICD-10-PCS; principal; 2024-04-09 11:47)
DX: I25.110 Atherosclerotic heart disease of native coronary artery with unstable angina pectoris (principal); Z68.41 Body mass index [BMI] 40.0-44.9, adult; I10 Essential (primary) hypertension; J44.9 Chronic obstructive pulmonary disease, unspecified; E11.51 Type 2 diabetes mellitus with diabetic peripheral angiopathy without gangrene; E78.00 Pure hypercholesterolemia, unspecified; E66.3 Overweight; G89.29 Other chronic pain; F17.210 Nicotine dependence, cigarettes, uncomplicated; L40.9 Psoriasis, unspecified; Z79.02 Long term (current) use of antithrombotics/antiplatelets; Z79.82 Long term (current) use of aspirin; Z79.84 Long term (current) use of oral hypoglycemic drugs; Z79.85 Long-term (current) use of injectable non-insulin antidiabetic drugs; Z79.51 Long term (current) use of inhaled steroids; Z95.5 Presence of coronary angioplasty implant and graft; Z95.1 Presence of aortocoronary bypass graft; Z79.899 Other long term (current) drug therapy; Z88.0 Allergy status to penicillin; Z88.8 Allergy status to other drugs, medicaments and biological substances; I25.2 Old myocardial infarction
CPT/HCPCS: 71046; 93306; 93459; 99285; 99406